=== PATIENT | female | born 1955 | race Native Hawaiian/Other Pacific Islander ===

== ENCOUNTER 2018-06-06 07:44 | Inpatient (IN) | payer OTHER ==
[2018-06-06 08:02] VITALS: BMI 42.5
[2018-06-06] MEDS ORDERED: SODIUM CHLORIDE 1,000 ML IV STA (08:13)
[2018-06-06] MEDS ORDERED: VANCOMYCIN 1,000 MG in DEXTROSE 5%-WATER - 250 ML IVPB ONE (08:25)
[2018-06-06] MEDS ORDERED: AZTREONAM 2 GM in DEXTROSE 5%-WATER 100 ML IVPB ONE (08:25)
--- NOTE | 2018-06-06 08:41 | PDOC ---
History of Present Illness - General Stated Complaint: DIZZINESS Time Seen by Provider: 06/06/18 07:52 - History of Present Illness Initial Comments: Christa Perez is a 62yo woman with a PMH of asthma, atypical COPD, psoriasis, and recently treated for RLE cellulitis who presents with malaise, fevers to 101 at home, headache, SAGASTUME, and recurrence of her RLE cellulitis with worsening proximal thigh pain for the past 2-3 days. She states that she has been taking acetaminophen at home but that her fevers return when the medication wears off. She has felt short of breath when walking but does not feel that she is having an asthma attack; she reports long-term asthma that resulted in her COPD symptoms and says that her asthma feels different than the current SOB. She has been compliant with her inhalers and psoriasis medications. Ms Perez reports that she finished a month-long course of doxycycline, prescribed for her cellulitis, about a week ago. Her RLE pain and erythema resolved while taking the antibiotics, but since completing the course they have returned. She additionally has some healing sores, about 0.5-1cm in diameter, on her right leg that she reports appeared with the cellulitis. She also has more proximal leg pain but has not noticed any redness or swelling in her thigh. She also has several small psoriatic wounds on her right heel and proximal lateral foot but says that they do not hurt and have not been especially red; there has been some clear fluid drainage but no pus or bleeding. These are typical for her psoriasis. She has not had any recent surgeries, immobilization, travel, or sick contacts. She denies any cardiac history. She has not had any new medications other than the recent doxycycline. She presented to the ED because she just didn't feel right for several days and because her fever was persisting despite taking medication at home. She felt like her symptoms were worsening rather than improving over time. Past History - Past Medical History Allergies/Adverse Reactions: Allergies Allergy/AdvReac Type Severity Reaction Status Date / Time Penicillins Allergy Verified 06/06/18 07:59 Home Medications: Ambulatory Orders Apremilast [Otezla] 1 each PO BID 06/06/18 Atorvastatin Calcium 20 mg PO DAILY 06/06/18 Levothyroxine [Synthroid -] 25 mcg PO DAILY 06/06/18 Losartan/Hydrochlorothiazide [Losartan-Hctz 100-25 mg Tab] 1 each PO DAILY 06/06 Umeclidinium [place] [Incruse Ellipta] 62.5 mcg IH DAILY 06/06/18 Zileuton [Zyflo Cr] 600 mg PO BID 06/06/18 Asthma: Yes COPD: No HTN: Yes Seizures: Yes Thyroid Disease: Yes - Surgical History Appendectomy: Yes - Immunization History Immunization Up to Date: Yes - Suicide/Smoking/Psychosocial Hx Smoking History: Never smoked Hx Alcohol Use: No Drug/Substance Use Hx: No Substance Use Type: None Review of Systems - Review of Systems Comments:: General: +fevers, +chills, +malaise, +anorexia HEENT: No changes in vision, no changes in hearing, no congestion, no sore throat. +headache CV: No chest pain, no palpitations, no LE edema Pulm: +SOB, +cough, no wheezing. h/o asthma, h/o COPD GI: No nausea or vomiting, no change in bowel habits, no melena : No frequency, no urgency, no dysuria Musc: No back pain, no joint swelling, no recent injury Skin: +recent cellulitis, +RLE erythema, +h/o psoriasis w/ foot wounds Endo: No excessive thirst, no heat/cold intolerance Heme: No unusual bruising or bleeding, no swollen glands Neuro: No syncope, no numbness/tingling, no focal weakness Vasc: No claudication Psych: No recent change in mood, no SI or HI *Physical Exam - Vital Signs Last Vital Signs Temp Pulse Resp BP Pulse Ox 100.1 F H 116 H 18 123/58 96 06/06/18 07:59 06/06/18 07:59 06/06/18 07:59 06/06/18 07:59 06/06/18 07:59 - Physical Exam Comments: General: Comfortable, no acute distress HEENT: PERRL, EOMI, MMM, voice normal, normal neck ROM Cards: RRR, no murmur appreciated Pulm: Comfortable on room air, clear to auscultation bilaterally Abd: Soft, nontender, nondistended though obese abdomen : No CVA tenderness Ext: Atraumatic. Minimal RLE edema. ROM intact. Strength 5/5 and equal bilaterally Skin: RLE with significant erythema distal to mid-pascual. Warm to touch. 1cm wound on lateral distal foot, clean base, no surrounding erythema or edema. R heel with 2x wounds <1cm, also no erythema/edema, clear fluid draining. Multiple scattered scabbed wounds overlying erythema on RLE. No drainage. Vasc: Extremities WWP. Palpable radial and pedal pulses bilaterally Neuro: A&Ox3, CN grossly intact, normal speech, motor/sensory grossly intact and symmetric Psych: Mood appropriate to situation ED Treatment Course - LABORATORY CBC & Chemistry Diagram: 06/06/18 08:18 06/06/18 08:18 Medical Decision Making - Medical Decision Making 06/06/18 09:18 Christa Perez is a 62yo woman with a PMH of COPD, asthma, psoriasis and recent treatment for RLE cellulitis who presents with general malaise, fever, SAGASTUME, headache and recurrence of her cellulitis over the past several days. - SOB/SAGASTUME may be secondary to her known asthma and COPD. No known history of CHF or ACS, no history concerning for PE. Alexandro r/o DVT/PE given RLE erythema and pain. Duplex, CXR, EKG, trop, BNP ordered to r/o - Appears to have recurrence of cellulitis following completion of antibiotics at home. Concern for bacteremia or sepsis. CBC, CMP, lactate, VBG, mag, phos, cultures ordered - Given report of suprapubic pain and fevers, will check UA for possible UTI. - 1L bolus NS ordered, starting vancomycin and aztreonam for cellulitis 06/06/18 10:43 - Labs completed, notable for leukocytosis to 17, Cr 1.4. EKG with sinus tach. CXR w/o acute abnormality - UA to be collected - Ultrasound pending but continued low suspicion of DVT/PE - Meets criteria for sepsis w/ HR 106, WBC 17, temp 100.4, and suspected cellulitis - Plan to admit for management of sepsis secondary to cellulitis. Discussed with Dr Dove. Discussed admission with Ms Perez. 06/06/18 11:45 - Duplex negative for DVT but shows 4cm right inguinal lymph node Seen and discussed with Dr Friedman. *DC/Admit/Observation/Transfer Diagnosis at time of Disposition: Cellulitis Qualifiers: Site of cellulitis: extremity Site of cellulitis of extremity: lower extremity Laterality: right Qualified Code(s): L03.115 - Cellulitis of right lower limb Sepsis Qualifiers: Sepsis type: sepsis due to unspecified organism Qualified Code(s): A41.9 - Sepsis, unspecified organism - Discharge Dispostion Condition at time of disposition: Fair Decision to Admit order: Yes - Referrals - Patient Instructions - Post Discharge Activity
[2018-06-06] MEDS ORDERED: VANCOMYCIN 1 GRAM (PRE-DOCKED) 1,000 MG/250 ML BAG IVPB ONE (08:52)
[2018-06-06 08:55] LABS: BASO % 0.4 % (0-2.0); EOS % 0.1 % (0-4.5); HEMATOCRIT 38.2 % (32.4-45.2); HEMOGLOBIN 12.9 GM/dL (10.7-15.3); LYMPH % 4.7 % (8-40); MCH 28.3 pg (25.7-33.7); MCHC 33.7 g/dl (32.0-36.0); MEAN CELL VOLUME 83.9 fl (80-96); MEAN PLT VOLUME 8.1 fl (7.5-11.1); MONO % 5.6 % (3.8-10.2); NEUT % 89.2 % (42.8-82.8); PLATELET COUNT 272 K/MM3 (134-434); RBC 4.55 M/mm3 (3.60-5.2); RDW 14.8 % (11.6-15.6); WHITE BLOOD COUNT 17.2 K/mm3 (4.0-10.0)
[2018-06-06 08:58] LABS: VENOUS PH 7.45 (7.32-7.42); VENOUS PO2 81.7 mmHg (28-48)
[2018-06-06 09:09] LABS: INR 1.27 (0.83-1.09); PROTHROMBIN TIME (PATIENT) 14.3 SEC (9.7-13.0)
[2018-06-06 09:12] LABS: ACTIVATED PTT 36.7 SECONDS (25.2-36.5)
[2018-06-06 09:19] LABS: ALBUMIN 3.5 g/dl (3.4-5.0); ALK PHOS 170 U/L (45-117); ANION GAP 9 (8-16); BILIRUBIN,TOTAL 0.7 mg/dL (0.2-1.0); BLOOD UREA NITROGEN 11 mg/dL (7-18); CALCIUM 8.9 mg/dL (8.5-10.1); CHLORIDE 100 mmol/L (98-107); CO2 25 mmol/L (21-32); CREATININE 1.2 mg/dL (0.55-1.02); GLUCOSE,RANDOM 154 mg/dL (74-106); PHOSPHOROUS 3.4 mg/dL (2.5-4.9); POTASSIUM 3.7 mmol/L (3.5-5.1); SGOT/AST 68 U/L (15-37); SGPT/ALT 72 U/L (12-78); SODIUM 134 mmol/L (136-145); TOT PROT 7.3 g/dl (6.4-8.2)
[2018-06-06 09:23] LABS: N-TERMINAL BNP 154.62 pg/ml (5-125)
[2018-06-06 09:32] LABS: MAGNESIUM 2.1 mg/dL (1.8-2.4)
--- NOTE | 2018-06-06 10:04 | HP ---
Admitting History and Physical - Primary Care Physician PCP: Flora Dove S - Admission Chief Complaint: RLE rash swelling and pain/ x2-3 days History of Present Illness: Christa Perez is a 62yo woman with a PMH of asthma/ COPD, psoriasis, and recently treated for recurrent RLE cellulitis who presents with malaise, fevers to 101 at home, headache, SAGASTUME, and recurrence of her RLE cellulitis with worsening proximal thigh pain for the past 2-3 days. She states that she has been taking acetaminophen at home but that her fevers return when the medication wears off. She has felt short of breath when walking but does not feel that she is having an asthma attack; she reports long-term asthma that resulted in her COPD symptoms and says that her asthma feels different than the current SOB. She has been compliant with her inhalers and psoriasis medications. Ms Perez reports that she finished a month-long course of doxycycline, prescribed for her cellulitis, about a week ago. Her RLE pain and erythema resolved while taking the antibiotics, but since completing the course they have returned. She additionally has some healing sores, about 0.5-1cm in diameter, on her right leg that she reports appeared with the cellulitis. She also has more proximal leg pain but has not noticed any redness or swelling in her thigh. She also has several small psoriatic wounds on her right heel and proximal lateral foot but says that they do not hurt and have not been especially red; there has been some clear fluid drainage but no pus or bleeding. These are typical for her psoriasis. She is currently on Otezla for psoriasis (failed other meds in the past) seen by derm dr Cha and referred to a psoriasis specialist Z(she has rivera in few weeks). per ER no DVT / RLE US in ER History Source: Patient Limitations to Obtaining History: No Limitations - Past Medical History Cardiovascular: Yes: HTN Pulmonary: Yes: Asthma, COPD Musculoskeletal: Yes: Chronic low back pain, Osteoarthritis Additional Past Medical History: psoriasis - Smoking History Smoking history: Never smoked - Alcohol/Substance Use Hx Alcohol Use: No - Social History Usual Living Arrangement: Yes: With Spouse ADL: Independent History of Recent Travel: No Home Medications - Allergies Allergies/Adverse Reactions: Allergies Allergy/AdvReac Type Severity Reaction Status Date / Time Penicillins Allergy Verified 06/06/18 07:59 - Home Medications Home Medications: Ambulatory Orders Apremilast [Otezla] 1 each PO BID 06/06/18 Aspirin [ASA -] 81 mg PO HS 06/06/18 Atorvastatin Calcium 20 mg PO DAILY 06/06/18 Beclomethasone Dipropionate [Qvar Redihaler] 2 inh IH BID 06/06/18 Levothyroxine [Synthroid -] 25 mcg PO DAILY 06/06/18 Losartan/Hydrochlorothiazide [Losartan-Hctz 100-25 mg Tab] 1 each PO DAILY 06/06 Umeclidinium [place] [Incruse Ellipta] 62.5 mcg IH BID 06/06/18 Umeclidinium [place] [Incruse Ellipta] 62.5 mcg IH DAILY 06/06/18 Zileuton [Zyflo Cr] 600 mg PO BID 06/06/18 Family Disease History - Family Disease History Family History: Unremarkable Review of Systems - Review of Systems Constitutional: reports: Chills, Fever. denies: Lethargy, Loss of Appetite Eyes: denies: Blind Spots, Blurred Vision, Double Vision HENT: denies: Ear Pain, Epistaxis Neck: denies: Stiffness, Tenderness Cardiovascular: denies: Chest Pain, Shortness of Breath Respiratory: denies: Cough, SOB Gastrointestinal: denies: Abdominal Pain, Constipation, Melena, Rectal Bleeding , Vomiting, Vomiting Blood Genitourinary: denies: Dysuria, Flank Pain Musculoskeletal: reports: Back Pain (on/off) Integumentary: reports: Erythema (RLE), Rash Neurological: denies: Change in LOC, Change in Speech, Confusion, Dizziness Endocrine: denies: Intolerance to Cold, Intolerance to Heat Hematology/Lymphatic: denies: Easily Bruised, Excessive Bleeding Psychiatric: denies: Altered Sleep Pattern, Anxiety, Depression, Suicidal Physical Examination Vital Signs: Vital Signs Temperature 100.4 F H 06/06/18 09:57 Pulse Rate 116 H 06/06/18 07:59 Respiratory Rate 18 06/06/18 07:59 Blood Pressure 123/58 06/06/18 07:59 O2 Sat by Pulse Oximetry (%) 98 06/06/18 09:08 Constitutional: Yes: No Distress, Calm Eyes: Yes: Conjunctiva Clear HENT: Yes: Atraumatic Neck: Yes: Supple Cardiovascular: Yes: Regular Rate and Rhythm Respiratory: Yes: CTA Bilaterally Gastrointestinal: Yes: Soft. No: Distention Renal/: No: CVA Tenderness - Left, CVA Tenderness - Right Musculoskeletal: No: Joint Stiffness, Joint Swelling Extremities: Yes: Erythema (RLE below knee and extending upper medial thigh). No: Cold, Cool, Cyanosis Edema: Yes (RLE below knee) Integumentary: Yes: Rash (see above). No: Pressure Ulcer, Venous Stasis Changes Neurological: Yes: WNL, Alert, Oriented ...Motor Strength: WNL Psychiatric: Yes: WNL, Alert, Oriented. No: Agitated, Suicidal Ideation Labs: CBC, BMP 06/06/18 08:18 06/06/18 08:18 Imaging - Results Chest X-ray: Report Reviewed Other: Report Reviewed Assessment/Plan Christa Perez is a 62yo woman with a PMH of asthma, atypical COPD, psoriasis, and recently treated for RLE cellulitis who presents with malaise, fevers to 101 at home, headache, SAGASTUME, and recurrence of her RLE cellulitis with worsening proximal thigh pain for the past 2-3 days. h/o difficult to control psoriasis admit IV antibiotics ID and dermatology eval f/u blood cx DVT pfx falls PFX d/w pt and staff
--- NOTE | 2018-06-06 10:04 | PDOC ---
Attending Attestation - Resident Resident Name: Yu Marti - ED Attending Attestation I have performed the following: I have examined & evaluated the patient, The case was reviewed & discussed with the resident, I agree w/resident's findings & plan, Exceptions are as noted - HPI HPI: 06/06/18 10:06 62 year old female with pmh of chronic asthma, COPD, psoriasis p/w RLE cellulitis. Endorses approx 3 to 4 days of fever (daily) Tmax 101. Noticed that her RLE redness. Pt was recently on 1 month's worth of doxycycline, but completed it 1 week ago. Denies nausea, vomiting, diarrhea. States she feels generally weak. - Physicial Exam PE: 06/06/18 10:18 GENERAL: Awake, alert, and fully oriented, in no acute distress HEAD: No signs of trauma EYES: EOMI, sclera anicteric, conjunctiva clear ENT: Auricles normal inspection, hearing grossly normal, nares patent NECK: Normal ROM, supple, EXTREMITIES: Normal range of motion, no edema. No clubbing or cyanosis. No cords, erythema, or tenderness NEUROLOGICAL: Cranial nerves II through XII grossly intact. Normal speech, normal gait SKIN: Diffuse erythematous rash along the right foot extending to right mid pascual. No fluctuance or drainage appreciated. - Medical Decision Making 06/06/18 10:19 Vital Signs Temp Pulse Resp BP Pulse Ox 100.4 F H 116 H 18 123/58 98 06/06/18 09:57 06/06/18 07:59 06/06/18 07:59 06/06/18 07:59 06/06/18 09:08 Impression: Cellulitis, failing outpatient antibiotics. Labs including cultures. IV antibiotics (vanc and aztreonam). Case discussed with Dr. Flora Dove. She accepts the patient to her service. Heart Score/ECG Review #1 ECG reviewed & interpreted by me at: 09:40 06/06/18 10:21 NSR 106, no std/sandra, normal axis, normal intervals, QTC 448 msec
--- NOTE | 2018-06-06 10:06 | PDOC ---
*Physical Exam - Vital Signs Last Vital Signs Temp Pulse Resp BP Pulse Ox 100.4 F H 116 H 18 123/58 98 06/06/18 09:57 06/06/18 07:59 06/06/18 07:59 06/06/18 07:59 06/06/18 09:08 ED Treatment Course - LABORATORY CBC & Chemistry Diagram: 06/06/18 08:18 06/06/18 08:18 - ADDITIONAL ORDERS Additional order review: Laboratory Results 06/06/18 06/06/18 06/06/18 08:18 08:18 08:18 PT with INR INR PTT (Actin FS) VBG pH POC VBG pCO2 POC VBG pO2 Mixed VBG HCO3 Sodium 134 L Potassium 3.7 Chloride 100 Carbon Dioxide 25 Anion Gap 9 BUN 11 Creatinine 1.2 H Creat Clearance w eGFR 45.37 Random Glucose 154 H Lactic Acid 1.2 Calcium 8.9 Phosphorus 3.4 Magnesium 2.1 Total Bilirubin 0.7 AST 68 H ALT 72 Alkaline Phosphatase 170 H B-Natriuretic Peptide 154.62 H Total Protein 7.3 Albumin 3.5 06/06/18 06/06/18 08:18 08:18 PT with INR 14.30 H INR 1.27 H PTT (Actin FS) 36.7 H VBG pH 7.45 H POC VBG pCO2 37.0 L POC VBG pO2 81.7 H Mixed VBG HCO3 25.4 H Sodium Potassium Chloride Carbon Dioxide Anion Gap BUN Creatinine Creat Clearance w eGFR Random Glucose Lactic Acid Calcium Phosphorus Magnesium Total Bilirubin AST ALT Alkaline Phosphatase B-Natriuretic Peptide Total Protein Albumin 06/06/18 08:18 RBC 4.55 MCV 83.9 MCHC 33.7 RDW 14.8 MPV 8.1 Neutrophils % 89.2 H Lymphocytes % 4.7 L Monocytes % 5.6 Eosinophils % 0.1 Basophils % 0.4 - Medications Given in the ED: ED Medications Discontinued Medications Generic Name Dose Route Start Last Admin Trade Name Freq PRN Reason Stop Dose Admin Sodium Chloride 1,000 mls @ 1,000 mls/hr 06/06/18 08:13 06/06/18 08:51 Normal Saline - IV 06/06/18 09:12 1,000 mls/hr ASDIR STA Administration Vancomycin HCl 1,000 mg/ 250 mls @ 166.667 mls/hr 06/06/18 08:25 06/06/18 09: 08 Dextrose IVPB 06/06/18 09:54 166.667 mls/hr ONCE ONE Administration Protocol *DC/Admit/Observation/Transfer Diagnosis at time of Disposition: Cellulitis Qualifiers: Site of cellulitis: extremity Site of cellulitis of extremity: lower extremity Laterality: right Qualified Code(s): L03.115 - Cellulitis of right lower limb - Discharge Dispostion Condition at time of disposition: Stable Decision to Admit order: Yes - Referrals Referrals: Flora Dove [Primary Care Provider] - - Patient Instructions - Post Discharge Activity
[2018-06-06 11:03] LABS: URINE APPEARANCE CLEAR; URINE BILIRUBIN NEGATIVE (<2.0 mg/dL); URINE COLOR LTYELLOW; URINE GLUCOSE (UA) NEGATIVE (NEGATIVE); URINE KETONE NEGATIVE (NEGATIVE); URINE LEUK ESTERASE NEGATIVE (NEGATIVE); URINE NITRITE NEGATIVE (NEGATIVE); URINE PROTEIN NEGATIVE (NEGATIVE); URINE UROBILINOGEN NEGATIVE mg/dL (0.2-1.0)
[2018-06-06] MEDS ORDERED: ACETAMINOPHEN 325 MG TABLET (FP) ONE (12:19)
[2018-06-06] MEDS ORDERED: ACETAMINOPHEN 325 MG TABLET (FP) PO ONE (12:20)
[2018-06-06] MEDS ORDERED: VANCOMYCIN 1,000 MG in DEXTROSE 5%-WATER - 250 ML IVPB SCH (17:00)
--- NOTE | 2018-06-06 17:03 | PN ---
Progress Note (short form) - Note Progress Note: ID Consult dictated R LE cellulitis Possible sepsis secondary to cellulitis PCN allergy Await c/s Continue empiric vancomycin/ aztreonam
[2018-06-06] MEDS ORDERED: VANCOMYCIN 1 GM PREMIX - 1 GM/200 ML BAG IVPB SCH (18:30)
[2018-06-06] MEDS ORDERED: PT OWN MED DRAWER 7, Y5N ONE (18:34)
[2018-06-06] MEDS: AZTREONAM 1 GM in DEXTROSE 5%-WATER - 50 ML IVPB SCH (18:36)
[2018-06-06] MEDS: VANCOMYCIN 1 GM PREMIX - 1 GM/200 ML BAG IVPB SCH (21:34)
[2018-06-06] MEDS: HEPARIN NA (PORCINE) 5,000 UNITS/ML 1ML VIAL SQ SCH (23:03)
[2018-06-06] MEDS: ACETAMINOPHEN 325 MG TABLET (FP) PO PRN (23:04)
[2018-06-07] MEDS: AZTREONAM 1 GM in DEXTROSE 5%-WATER - 50 ML IVPB SCH ×3 (01:17→17:00)
[2018-06-07] MEDS: LEVOTHYROXINE NA 25 MCG TABLET (FP) PO SCH (06:16)
[2018-06-07 08:07] LABS: BASO % 0.8 % (0-2.0); HEMATOCRIT 34.3 % (32.4-45.2); HEMOGLOBIN 11.5 GM/dL (10.7-15.3); LYMPH % 10.7 % (8-40); MCH 28.3 pg (25.7-33.7); MCHC 33.7 g/dl (32.0-36.0); MEAN PLT VOLUME 7.8 fl (7.5-11.1); MONO % 7.1 % (3.8-10.2); NEUT % 80.4 % (42.8-82.8); PLATELET COUNT 262 K/MM3 (134-434); RBC 4.08 M/mm3 (3.60-5.2); RDW 15.1 % (11.6-15.6); WHITE BLOOD COUNT 13.7 K/mm3 (4.0-10.0)
--- NOTE | 2018-06-07 08:16 | PN ---
Progress Note, Physician Chief Complaint: leg still red, on IV ATB seen by ID US negative for DVT - Current Medication List Current Medications: Active Medications Acetaminophen (Tylenol -) 650 mg PO Q6H PRN PRN Reason: FEVER/PAIN LEVEL 1-5 Last Admin: 06/06/18 23:04 Dose: 650 mg Aspirin (Ecotrin -) 81 mg PO DAILY [facility] Atorvastatin Calcium (Lipitor -) 20 mg PO HS [facility] HCTZ/Losartan Potassium (Hyzaar -) 2 tab PO DAILY [facility] Heparin Sodium (Porcine) (Heparin -) 5,000 unit SQ BID [facility] Last Admin: 06/06/18 23:03 Dose: 5,000 unit Aztreonam 1 gm/ Dextrose 50 mls @ 100 mls/hr IVPB Q8H-IV [facility]; Protocol Last Admin: 06/07/18 01:17 Dose: 100 mls/hr Vancomycin HCl (Vancomycin 1 Gm Premix -) 1 gm in 200 mls @ 133.333 mls/hr IVPB BID@0900,2100 [facility]; Protocol Last Admin: 06/06/18 21:34 Dose: 133.333 mls/hr Levothyroxine Sodium (Synthroid -) 25 mcg PO DAILY@0700 [facility] Last Admin: 06/07/18 06:16 Dose: 25 mcg Non-Formulary Medication (Apremilast [Otezla]) 1 each PO BID [facility] Non-Formulary Medication (Umeclidinium [place] [Incruse Ellipta]) 62.5 mcg IH DAILY [facility] Non-Formulary Medication (Zileuton [Zyflo Cr]) 1,200 mg PO BID [facility] Qvar 80 Mcg Inhaler (- Patient Own Med) 2 each IH BID [facility] - Objective Vital Signs: Vital Signs Temperature 98.5 F 06/07/18 06:00 Pulse Rate 91 H 06/07/18 06:00 Respiratory Rate 20 06/07/18 06:00 Blood Pressure 122/60 06/07/18 06:00 O2 Sat by Pulse Oximetry (%) 98 06/06/18 21:00 Constitutional: Yes: No Distress, Calm Eyes: Yes: Conjunctiva Clear HENT: Yes: Atraumatic Neck: Yes: Supple Cardiovascular: Yes: Regular Rate and Rhythm Respiratory: Yes: CTA Bilaterally Gastrointestinal: Yes: Soft. No: Distention Genitourinary: No: CVA Tenderness - Left, CVA Tenderness - Right Musculoskeletal: No: Joint Stiffness, Joint Swelling Extremities: Yes: Erythema (RLE below knee). No: Calf Tenderness, Cold, Cool, Cyanosis Edema: Yes (1+ RLE below knee) Peripheral Pulses WNL: Yes Integumentary: Yes: Rash (RLE). No: Venous Stasis Changes Neurological: Yes: WNL, Alert, Oriented ...Motor Strength: WNL Psychiatric: Yes: WNL, Alert, Oriented. No: Agitated, Suicidal Ideation Labs: CBC, BMP 06/07/18 06:15 INR, PTT INR 1.27 (0.83-1.09) H 06/06/18 08:18 - ....Imaging Other: Report Reviewed Assessment/Plan Christa Perez is a 62yo woman with a PMH of asthma, atypical COPD, psoriasis, and recently treated for RLE cellulitis who presents with malaise, fevers to 101 at home, headache, SAGASTUME, and recurrence of her RLE cellulitis with worsening proximal thigh pain for the past 2-3 days. h/o difficult to control psoriasis IV antibiotics ID and dermatology eval f/u blood cx DVT pfx falls PFX d/w pt and staff
[2018-06-07 08:35] LABS: ALBUMIN 2.9 g/dl (3.4-5.0); ANION GAP 9 (8-16); BLOOD UREA NITROGEN 10 mg/dL (7-18); CALCIUM 8.3 mg/dL (8.5-10.1); CHLORIDE 104 mmol/L (98-107); CO2 27 mmol/L (21-32); GLUCOSE,RANDOM 134 mg/dL (74-106); POTASSIUM 3.2 mmol/L (3.5-5.1); SODIUM 140 mmol/L (136-145)
[2018-06-07] MEDS ORDERED: PT OWN MED DRAWER 7, Y5N ONE ×2 (08:36→16:40)
[2018-06-07 08:40] LABS: ALK PHOS 155 U/L (45-117); BILIRUBIN,TOTAL 0.6 mg/dL (0.2-1.0); CREATININE 0.9 mg/dL (0.55-1.02); SGOT/AST 41 U/L (15-37); SGPT/ALT 68 U/L (12-78); TOT PROT 6.4 g/dl (6.4-8.2)
[2018-06-07] MEDS: VANCOMYCIN 1 GM PREMIX - 1 GM/200 ML BAG IVPB SCH ×2 (08:43→21:25)
--- NOTE | 2018-06-07 08:58 | EKG ---
Test Reason : Blood Pressure : / mmHG Vent. Rate : 106 BPM Atrial Rate : 106 BPM P-R Int : 176 ms QRS Dur : 080 ms QT Int : 338 ms P-R-T Axes : 070 035 048 degrees QTc Int : 448 ms SINUS TACHYCARDIA OTHERWISE NORMAL ECG WHEN COMPARED WITH ECG OF 20-MAY-2011 10:45, NO SIGNIFICANT CHANGE WAS FOUND Confirmed by ANGELA RUIZ MD ([id number]) on 06/07/2018 8:58:16 AM Referred By: Confirmed By:ANGELA RUIZ MD
[2018-06-07] MEDS: HEPARIN NA (PORCINE) 5,000 UNITS/ML 1ML VIAL SQ SCH ×2 (09:04→21:28)
[2018-06-07] MEDS: ATORVASTATIN CA 20 MG TABLET (FP) PO SCH ×2 (09:04→21:28)
[2018-06-07] MEDS: QVAR 80 MCG IH SCH ×2 (09:04→21:27)
[2018-06-07] MEDS: APREMILAST PO SCH ×2 (09:04→21:26)
[2018-06-07] MEDS: ASPIRIN COATED 81 MG TABLET.EC PO SCH (09:04)
[2018-06-07] MEDS: ZILEUTON PO SCH ×2 (09:04→21:26)
[2018-06-07] MEDS: PATIENT'S OWN MEDICATION (NON-FORMULARY) (Umeclidinium Bromide [Incruse Ellipta] 62.5 MCG) IH SCH (09:04)
[2018-06-07] MEDS: LOSARTAN 50MG/HCTZ 12.5MG 1 TAB (FP) PO SCH (09:08)
--- NOTE | 2018-06-07 11:16 | PN ---
Progress Note, Physician History of Present Illness: Awake, alert Seated in bed No c/o R LE pain No c/o fever/ chills Tolerating Vancomycin/ Aztreonam - Current Medication List Current Medications: Active Medications Acetaminophen (Tylenol -) 650 mg PO Q6H PRN PRN Reason: FEVER/PAIN LEVEL 1-5 Last Admin: 06/06/18 23:04 Dose: 650 mg Aspirin (Ecotrin -) 81 mg PO DAILY [facility] Last Admin: 06/07/18 09:04 Dose: 81 mg Aspirin (Asa -) 81 mg PO HS [facility] Atorvastatin Calcium (Lipitor -) 20 mg PO HS [facility] Last Admin: 06/07/18 09:04 Dose: 20 mg HCTZ/Losartan Potassium (Hyzaar -) 2 tab PO DAILY [facility] Last Admin: 06/07/18 09:08 Dose: 2 tab Heparin Sodium (Porcine) (Heparin -) 5,000 unit SQ BID [facility] Last Admin: 06/07/18 09:04 Dose: 5,000 unit Aztreonam 1 gm/ Dextrose 50 mls @ 100 mls/hr IVPB Q8H-IV [facility]; Protocol Last Admin: 06/07/18 09:55 Dose: 100 mls/hr Vancomycin HCl (Vancomycin 1 Gm Premix -) 1 gm in 200 mls @ 133.333 mls/hr IVPB BID@0900,2100 [facility]; Protocol Last Admin: 06/07/18 08:43 Dose: Not Given Levothyroxine Sodium (Synthroid -) 25 mcg PO DAILY@0700 [facility] Last Admin: 06/07/18 06:16 Dose: 25 mcg Non-Formulary Medication (Apremilast [Otezla]) 1 each PO BID [facility] Last Admin: 06/07/18 09:04 Dose: 1 each Non-Formulary Medication (Umeclidinium [place] [Incruse Ellipta]) 62.5 mcg IH DAILY [facility] Last Admin: 06/07/18 09:04 Dose: 62.5 mcg Non-Formulary Medication (Zileuton [Zyflo Cr]) 1,200 mg PO BID [facility] Last Admin: 06/07/18 09:04 Dose: 1,200 mg Qvar 80 Mcg Inhaler (- Patient Own Med) 2 each IH BID [facility] Last Admin: 06/07/18 09:04 Dose: 2 each Non-Formulary Medication (Beclomethasone Dipropionate [Qvar Redihaler]) 2 inh IH BID [facility] Non-Formulary Medication (Umeclidinium [place] [Incruse Ellipta]) 62.5 mcg IH BID [facility] Potassium Chloride (K-Dur -) 20 meq PO DAILY [facility] - Objective Vital Signs: Vital Signs Temperature 98.1 F 06/07/18 09:00 Pulse Rate 108 H 06/07/18 09:00 Respiratory Rate 20 06/07/18 09:00 Blood Pressure 161/84 06/07/18 09:00 O2 Sat by Pulse Oximetry (%) 98 06/07/18 09:00 Constitutional: Yes: No Distress, Obese Eyes: Yes: Conjunctiva Clear Cardiovascular: Yes: Regular Rate and Rhythm, S1, S2 Respiratory: Yes: CTA Bilaterally Gastrointestinal: Yes: Normal Bowel Sounds, Soft, Abdomen, Obese. No: Tenderness Extremities: Yes: Other (+ LE erythema/ warmth with lymphangitic streaking R thigh. No open wounds.) Labs: CBC, BMP 06/07/18 06:15 06/07/18 06:15 INR, PTT INR 1.27 (0.83-1.09) H 06/06/18 08:18 Assessment/Plan Cellulitis/ lymphangitis R LE Fever/ leukocytosis R/O sepsis Hx psoriasis on otezla PCN allergy Await cultures Continue empiric vancomycin/ aztreonam
[2018-06-07] MEDS: POTASSIUM CHLORIDE TABS 10 MEQ TABLET.ER (FP) PO SCH (12:22)
--- NOTE | 2018-06-07 12:30 | CONS ---
DATE OF CONSULTATION: DATE OF DICTATION: 06/07/2018 The patient is a 62-year-old female with a history of psoriasis, on Otezla, evaluated for right lower extremity cellulitis. The patient reports that over the past month, she has developed cellulitis of the right lower extremity and was treated with a course of doxycycline. She reports taking the doxycycline for approximately a month, with improvement, however, not total resolution of the cellulitis. She now presents with worsening erythema, warmth, and swelling of the right lower extremity associated with fever, headache, generalized malaise, symptoms markedly worsened over the last 2 to 3 days. She presented to the emergency room, where she was found to have cellulitis of the right lower extremity with lymphangitis. In the emergency room, she was febrile to 100.8 and had a white blood cell count of 17,000. She was empirically treated with vancomycin and Azactam. She has a history of penicillin allergy. She denies any traumatic injury to the right lower extremity. No insect or animal bites or scratches. She has been under the care of a chemical lab technician for psoriasis. She denies history of MRSA. Past medical history positive for psoriasis, asthma, COPD, right lower extremity cellulitis. Allergies to PENICILLIN: Patient reports joint swelling with PENICILLIN. Medications include Otezla, Lipitor, Synthroid, losartan, hydrochlorothiazide, Zyflo. SOCIAL HISTORY: Resides at home. Nonsmoker, nondrinker. SYSTEMS REVIEW: Neurologic: No loss of consciousness, seizure activity, or focal weakness. Cardiac: Negative chest pain or palpitations. Respiratory: Negative cough or sputum production. Gastrointestinal: Negative vomiting or diarrhea. Genitourinary: Negative for urinary tract infection. LABORATORY DATA: White count on admission 17,000, presently 13.7, hematocrit 34.3, platelet count 262. BUN 10, creatinine 0.9. Doppler exam negative for DVT. Urinalysis negative. Chest x-ray negative. Blood cultures pending. PHYSICAL EXAMINATION: General: She is awake and alert, in no acute distress. Vital Signs: Temperature 99.0. Blood pressure 144/60. Pulse 85, regular. Respirations 20 per minute, T-max 100.8. Eyes: Sclerae anicteric. Heart Sounds: S1, S2. Lungs: Clear. Abdomen: Obese, soft, nontender. Extremities: Right lower extremity, there is confluent erythema involving the right lower extremity from the foot to the mid leg. There is lymphangitic streaking up the right medial thigh. The area is warm to touch and tender. No crepitus or fluctuance. No open lesions noted or wound drainage. IMPRESSION: 1. Recurrent right lower extremity cellulitis with lymphangitis. 2. Fever, leukocytosis. Rule out sepsis secondary to skin source. 3. PENICILLIN allergy. 4. Psoriasis, on Otezla. Await culture results, empiric antibiotic coverage, in this PENICILLIN-allergic patient, with vancomycin and Azactam. Elevation, analgesics. Further recommendations pending cultures. Will follow. Thank you for the kind referral. FILIBERTO BAILEY M.D. [id number]
[2018-06-07 12:32] LABS: ERYTHROCYTE SEDIMENTATION RATE 94 mm/hr (0-30)
[2018-06-07] MEDS: RANITIDINE HCL 150 MG TABLET (FP) PO SCH (21:28)
[2018-06-07] MEDS: ASPIRIN 81 MG CHEWABLE TABLETS PO SCH (21:28)
[2018-06-07] MEDS: MAG HYDROX/AL HYDROX/SIMETH 30 ML UNIT-DOSE CUP PO PRN (21:48)
[2018-06-07] MEDS ORDERED: [UNRECOGNIZED DRUG - OTHER] IH SCH (22:00)
[2018-06-07] MEDS ORDERED: PATIENT'S OWN MEDICATION (NON-FORMULARY) (Umeclidinium Bromide [Incruse Ellipta] 62.5 MCG) IH SCH (22:00)
[2018-06-08] MEDS ORDERED: PT OWN MED DRAWER 7, Y5N ONE ×3 (01:07→17:29)
[2018-06-08] MEDS: AZTREONAM 1 GM in DEXTROSE 5%-WATER - 50 ML IVPB SCH ×3 (01:47→17:43)
[2018-06-08] MEDS: LEVOTHYROXINE NA 25 MCG TABLET (FP) PO SCH (06:11)
[2018-06-08] MEDS: POTASSIUM CHLORIDE TABS 10 MEQ TABLET.ER (FP) PO SCH (10:04)
[2018-06-08] MEDS: ASPIRIN COATED 81 MG TABLET.EC PO SCH (10:04)
[2018-06-08] MEDS: VANCOMYCIN 1 GM PREMIX - 1 GM/200 ML BAG IVPB SCH ×2 (10:04→21:22)
[2018-06-08] MEDS: LOSARTAN 50MG/HCTZ 12.5MG 1 TAB (FP) PO SCH (10:04)
[2018-06-08] MEDS: QVAR 80 MCG IH SCH ×2 (10:09→21:23)
[2018-06-08] MEDS: APREMILAST PO SCH ×2 (10:09→21:23)
[2018-06-08] MEDS: PATIENT'S OWN MEDICATION (NON-FORMULARY) (Umeclidinium Bromide [Incruse Ellipta] 62.5 MCG) IH SCH (10:10)
[2018-06-08] MEDS: HEPARIN NA (PORCINE) 5,000 UNITS/ML 1ML VIAL SQ SCH ×2 (10:10→21:25)
[2018-06-08] MEDS: ZILEUTON PO SCH ×2 (10:10→21:23)
--- NOTE | 2018-06-08 10:14 | PN ---
Progress Note, Physician Chief Complaint: no new c/o; RLE a little better, less rash less pain - Current Medication List Current Medications: Active Medications Acetaminophen (Tylenol -) 650 mg PO Q6H PRN PRN Reason: FEVER/PAIN LEVEL 1-5 Last Admin: 06/06/18 23:04 Dose: 650 mg Al Hydroxide/Mg Hydroxide (Mylanta Oral Suspension -) 20 ml PO Q6H PRN PRN Reason: INDIGESTION Last Admin: 06/07/18 21:48 Dose: 20 ml Aspirin (Ecotrin -) 81 mg PO DAILY [facility] Last Admin: 06/08/18 10:04 Dose: 81 mg Aspirin (Asa -) 81 mg PO HS [facility] Last Admin: 06/07/18 21:28 Dose: 81 mg Atorvastatin Calcium (Lipitor -) 20 mg PO HS [facility] Last Admin: 06/07/18 21:28 Dose: 20 mg HCTZ/Losartan Potassium (Hyzaar -) 2 tab PO DAILY [facility] Last Admin: 06/08/18 10:04 Dose: 2 tab Heparin Sodium (Porcine) (Heparin -) 5,000 unit SQ BID [facility] Last Admin: 06/08/18 10:10 Dose: 5,000 unit Aztreonam 1 gm/ Dextrose 50 mls @ 100 mls/hr IVPB Q8H-IV [facility]; Protocol Last Admin: 06/08/18 01:47 Dose: 100 mls/hr Vancomycin HCl (Vancomycin 1 Gm Premix -) 1 gm in 200 mls @ 133.333 mls/hr IVPB BID@0900,2100 [facility]; Protocol Last Admin: 06/08/18 10:04 Dose: 133.333 mls/hr Levothyroxine Sodium (Synthroid -) 25 mcg PO DAILY@0700 [facility] Last Admin: 06/08/18 06:11 Dose: 25 mcg Non-Formulary Medication (Apremilast [Otezla]) 1 each PO BID [facility] Last Admin: 06/08/18 10:09 Dose: 1 each Non-Formulary Medication (Umeclidinium [place] [Incruse Ellipta]) 62.5 mcg IH DAILY [facility] Last Admin: 06/08/18 10:10 Dose: 62.5 mcg Non-Formulary Medication (Zileuton [Zyflo Cr]) 1,200 mg PO BID [facility] Last Admin: 06/08/18 10:10 Dose: 1,200 mg Qvar 80 Mcg Inhaler (- Patient Own Med) 2 each IH BID [facility] Last Admin: 06/08/18 10:09 Dose: 2 each Non-Formulary Medication (Beclomethasone Dipropionate [Qvar Redihaler]) 2 inh IH BID [facility] Non-Formulary Medication (Umeclidinium [place] [Incruse Ellipta]) 62.5 mcg IH BID [facility] Potassium Chloride (K-Dur -) 20 meq PO DAILY [facility] Last Admin: 06/08/18 10:04 Dose: 20 meq Ranitidine HCl (Zantac -) 150 mg PO HS [facility] Last Admin: 06/07/18 21:28 Dose: 150 mg - Objective Vital Signs: Vital Signs Temperature 98.9 F 06/08/18 06:00 Pulse Rate 84 06/08/18 06:00 Respiratory Rate 18 06/08/18 06:00 Blood Pressure 101/50 06/08/18 06:00 O2 Sat by Pulse Oximetry (%) 96 06/07/18 21:00 Constitutional: Yes: No Distress Eyes: Yes: Conjunctiva Clear HENT: Yes: Atraumatic Neck: Yes: Supple Cardiovascular: Yes: Regular Rate and Rhythm Respiratory: Yes: CTA Bilaterally Gastrointestinal: Yes: Soft. No: Distention Genitourinary: No: CVA Tenderness - Left, CVA Tenderness - Right Musculoskeletal: No: Joint Stiffness, Joint Swelling Extremities: Yes: Erythema (better). No: Calf Tenderness, Cold, Cool, Cyanosis Edema: Yes (better RLE) Integumentary: No: Venous Stasis Changes Neurological: Yes: WNL, Alert, Oriented ...Motor Strength: WNL Psychiatric: Yes: WNL, Alert, Oriented. No: Agitated, Suicidal Ideation Labs: CBC, BMP 06/07/18 06:15 06/07/18 06:15 INR, PTT INR 1.27 (0.83-1.09) H 06/06/18 08:18 - ....Imaging Other: Report Reviewed Assessment/Plan Christa Perez is a 62yo woman with a PMH of asthma, atypical COPD, psoriasis, and recently treated for RLE cellulitis who presents with malaise, fevers to 101 at home, headache, SAGASTUME, and recurrence of her RLE cellulitis with worsening proximal thigh pain for the past 2-3 days. h/o difficult to control psoriasis IV antibiotics ID and dermatology f/u slightly worse increase in LFTs, GI eval; liver US f/u blood cx DVT pfx falls PFX d/w pt and staff
[2018-06-08] MEDS: MAG HYDROX/AL HYDROX/SIMETH 30 ML UNIT-DOSE CUP PO PRN (17:38)
[2018-06-08] MEDS: ACETAMINOPHEN 325 MG TABLET (FP) PO PRN (17:39)
[2018-06-08] MEDS: ASPIRIN 81 MG CHEWABLE TABLETS PO SCH (21:24)
[2018-06-08] MEDS: ATORVASTATIN CA 20 MG TABLET (FP) PO SCH (21:24)
[2018-06-08] MEDS: RANITIDINE HCL 150 MG TABLET (FP) PO SCH (21:24)
[2018-06-09] MEDS: AZTREONAM 1 GM in DEXTROSE 5%-WATER - 50 ML IVPB SCH ×3 (02:48→17:27)
[2018-06-09] MEDS: LEVOTHYROXINE NA 25 MCG TABLET (FP) PO SCH (06:02)
[2018-06-09 08:52] LABS: EOS % 4.8 % (0-4.5); HEMATOCRIT 33.7 % (32.4-45.2); HEMOGLOBIN 11.2 GM/dL (10.7-15.3); LYMPH % 16.1 % (8-40); MCH 28.3 pg (25.7-33.7); MCHC 33.3 g/dl (32.0-36.0); MEAN CELL VOLUME 85.1 fl (80-96); MEAN PLT VOLUME 7.7 fl (7.5-11.1); MONO % 7.9 % (3.8-10.2); NEUT % 70.2 % (42.8-82.8); PLATELET COUNT 288 K/MM3 (134-434); RBC 3.96 M/mm3 (3.60-5.2); RDW 14.6 % (11.6-15.6); WHITE BLOOD COUNT 9.9 K/mm3 (4.0-10.0)
--- NOTE | 2018-06-09 08:59 | PN ---
Progress Note, Physician Chief Complaint: did not sleep well (b/o hospital conditions) but leg is a little better no N/V/ abdominal pain. - Current Medication List Current Medications: Active Medications Acetaminophen (Tylenol -) 650 mg PO Q6H PRN PRN Reason: FEVER/PAIN LEVEL 1-5 Last Admin: 06/08/18 17:39 Dose: 650 mg Al Hydroxide/Mg Hydroxide (Mylanta Oral Suspension -) 20 ml PO Q6H PRN PRN Reason: INDIGESTION Last Admin: 06/08/18 17:38 Dose: 20 ml Aspirin (Ecotrin -) 81 mg PO DAILY [facility] Last Admin: 06/08/18 10:04 Dose: 81 mg Aspirin (Asa -) 81 mg PO HS [facility] Last Admin: 06/08/18 21:24 Dose: 81 mg Atorvastatin Calcium (Lipitor -) 20 mg PO HS [facility] Last Admin: 06/08/18 21:24 Dose: 20 mg HCTZ/Losartan Potassium (Hyzaar -) 2 tab PO DAILY [facility] Last Admin: 06/08/18 10:04 Dose: 2 tab Heparin Sodium (Porcine) (Heparin -) 5,000 unit SQ BID [facility] Last Admin: 06/08/18 21:25 Dose: 5,000 unit Aztreonam 1 gm/ Dextrose 50 mls @ 100 mls/hr IVPB Q8H-IV [facility]; Protocol Last Admin: 06/09/18 02:48 Dose: 100 mls/hr Vancomycin HCl (Vancomycin 1 Gm Premix -) 1 gm in 200 mls @ 133.333 mls/hr IVPB BID@0900,2100 [facility]; Protocol Last Admin: 06/08/18 21:22 Dose: 133.333 mls/hr Levothyroxine Sodium (Synthroid -) 25 mcg PO DAILY@0700 [facility] Last Admin: 06/09/18 06:02 Dose: 25 mcg Non-Formulary Medication (Apremilast [Otezla]) 1 each PO BID [facility] Last Admin: 06/08/18 21:23 Dose: 1 each Non-Formulary Medication (Umeclidinium [place] [Incruse Ellipta]) 62.5 mcg IH DAILY [facility] Last Admin: 06/08/18 10:10 Dose: 62.5 mcg Non-Formulary Medication (Zileuton [Zyflo Cr]) 1,200 mg PO BID [facility] Last Admin: 06/08/18 21:23 Dose: 1,200 mg Qvar 80 Mcg Inhaler (- Patient Own Med) 2 each IH BID [facility] Last Admin: 06/08/18 21:23 Dose: 2 each Non-Formulary Medication (Beclomethasone Dipropionate [Qvar Redihaler]) 2 inh IH BID [facility] Non-Formulary Medication (Umeclidinium [place] [Incruse Ellipta]) 62.5 mcg IH BID [facility] Potassium Chloride (K-Dur -) 20 meq PO DAILY [facility] Last Admin: 06/08/18 10:04 Dose: 20 meq Ranitidine HCl (Zantac -) 150 mg PO HS [facility] Last Admin: 06/08/18 21:24 Dose: 150 mg - Objective Vital Signs: Vital Signs Temperature 97.8 F 06/09/18 06:20 Pulse Rate 79 06/09/18 06:20 Respiratory Rate 20 06/09/18 06:20 Blood Pressure 122/57 06/09/18 06:20 O2 Sat by Pulse Oximetry (%) 96 06/08/18 21:00 Constitutional: Yes: No Distress, Calm Eyes: Yes: Conjunctiva Clear HENT: Yes: Atraumatic Neck: Yes: Supple Cardiovascular: Yes: Regular Rate and Rhythm Respiratory: Yes: CTA Bilaterally Gastrointestinal: Yes: Soft. No: Tenderness Genitourinary: No: CVA Tenderness - Left, CVA Tenderness - Right Musculoskeletal: No: Joint Stiffness, Joint Swelling Extremities: Yes: Erythema (less). No: Cold, Cool Edema: No Integumentary: No: Skin Tear, Venous Stasis Changes Neurological: Yes: WNL, Alert, Oriented ...Motor Strength: WNL Psychiatric: Yes: WNL, Alert, Oriented. No: Agitated, Suicidal Ideation Labs: CBC, BMP 06/09/18 07:00 INR, PTT INR 1.27 (0.83-1.09) H 06/06/18 08:18 - ....Imaging Other: Report Reviewed Assessment/Plan Christa Perez is a 62yo woman with a PMH of asthma, atypical COPD, psoriasis, and recently treated for RLE cellulitis who presents with malaise, fevers to 101 at home, headache, SAGASTUME, and recurrence of her RLE cellulitis with worsening proximal thigh pain for the past 2-3 days. h/o difficult to control psoriasis IV antibiotics ID and dermatology f/u slightly worse increase in LFTs, GI eval; liver US f/u blood cx DVT pfx falls PFX d/w pt and staff
[2018-06-09 09:05] LABS: ALBUMIN 2.7 g/dl (3.4-5.0); ANION GAP 7 (8-16); BLOOD UREA NITROGEN 16 mg/dL (7-18); CALCIUM 8.6 mg/dL (8.5-10.1); CHLORIDE 103 mmol/L (98-107); CO2 29 mmol/L (21-32); CREATININE 1.1 mg/dL (0.55-1.02); GLUCOSE,RANDOM 113 mg/dL (74-106); POTASSIUM 3.9 mmol/L (3.5-5.1); SGOT/AST 68 U/L (15-37); SGPT/ALT 123 U/L (12-78); SODIUM 139 mmol/L (136-145)
[2018-06-09] MEDS: VANCOMYCIN 1 GM PREMIX - 1 GM/200 ML BAG IVPB SCH ×2 (09:05→22:03)
[2018-06-09 09:08] LABS: ALK PHOS 261 U/L (45-117); BILIRUBIN,TOTAL 0.3 mg/dL (0.2-1.0); TOT PROT 6.5 g/dl (6.4-8.2)
[2018-06-09] MEDS: APREMILAST PO SCH ×2 (09:16→21:18)
[2018-06-09] MEDS: ZILEUTON PO SCH ×2 (09:16→21:18)
[2018-06-09] MEDS: PATIENT'S OWN MEDICATION (NON-FORMULARY) (Umeclidinium Bromide [Incruse Ellipta] 62.5 MCG) IH SCH (09:17)
[2018-06-09] MEDS: ASPIRIN COATED 81 MG TABLET.EC PO SCH (09:17)
[2018-06-09] MEDS: QVAR 80 MCG IH SCH ×2 (09:17→21:18)
[2018-06-09] MEDS: POTASSIUM CHLORIDE TABS 10 MEQ TABLET.ER (FP) PO SCH (09:17)
[2018-06-09] MEDS: HEPARIN NA (PORCINE) 5,000 UNITS/ML 1ML VIAL SQ SCH ×2 (09:18→21:55)
[2018-06-09] MEDS: LOSARTAN 50MG/HCTZ 12.5MG 1 TAB (FP) PO SCH (09:18)
--- NOTE | 2018-06-09 16:02 | PN ---
Progress Note, Physician History of Present Illness: Awake, alert Seated in bed No c/o R LE pain No c/o fever/ chills Tolerating Vancomycin/ Aztreonam Temps down- afebrile WBC WNL - Current Medication List Current Medications: Active Medications Acetaminophen (Tylenol -) 650 mg PO Q6H PRN PRN Reason: FEVER/PAIN LEVEL 1-5 Last Admin: 06/08/18 17:39 Dose: 650 mg Al Hydroxide/Mg Hydroxide (Mylanta Oral Suspension -) 20 ml PO Q6H PRN PRN Reason: INDIGESTION Last Admin: 06/08/18 17:38 Dose: 20 ml Aspirin (Ecotrin -) 81 mg PO DAILY [facility] Last Admin: 06/09/18 09:17 Dose: 81 mg Aspirin (Asa -) 81 mg PO HS [facility] Last Admin: 06/08/18 21:24 Dose: 81 mg Atorvastatin Calcium (Lipitor -) 20 mg PO HS [facility] Last Admin: 06/08/18 21:24 Dose: 20 mg HCTZ/Losartan Potassium (Hyzaar -) 2 tab PO DAILY [facility] Last Admin: 06/09/18 09:18 Dose: 2 tab Heparin Sodium (Porcine) (Heparin -) 5,000 unit SQ BID [facility] Last Admin: 06/09/18 09:18 Dose: 5,000 unit Hydrocortisone (Hytone 1% Cream -) 1 applic TP BID [facility] Aztreonam 1 gm/ Dextrose 50 mls @ 100 mls/hr IVPB Q8H-IV [facility]; Protocol Last Admin: 06/09/18 11:01 Dose: 100 mls/hr Vancomycin HCl (Vancomycin 1 Gm Premix -) 1 gm in 200 mls @ 133.333 mls/hr IVPB BID@0900,2100 [facility]; Protocol Last Admin: 06/09/18 09:05 Dose: 133.333 mls/hr Levothyroxine Sodium (Synthroid -) 25 mcg PO DAILY@0700 [facility] Last Admin: 06/09/18 06:02 Dose: 25 mcg Non-Formulary Medication (Apremilast [Otezla]) 1 each PO BID [facility] Last Admin: 06/09/18 09:16 Dose: 1 each Non-Formulary Medication (Umeclidinium [place] [Incruse Ellipta]) 62.5 mcg IH DAILY [facility] Last Admin: 06/09/18 09:17 Dose: 62.5 mcg Non-Formulary Medication (Zileuton [Zyflo Cr]) 1,200 mg PO BID [facility] Last Admin: 06/09/18 09:16 Dose: 1,200 mg Qvar 80 Mcg Inhaler (- Patient Own Med) 2 each IH BID [facility] Last Admin: 06/09/18 09:17 Dose: 2 each Non-Formulary Medication (Beclomethasone Dipropionate [Qvar Redihaler]) 2 inh IH BID [facility] Non-Formulary Medication (Umeclidinium [place] [Incruse Ellipta]) 62.5 mcg IH BID [facility] Potassium Chloride (K-Dur -) 20 meq PO DAILY [facility] Last Admin: 06/09/18 09:17 Dose: 20 meq Ranitidine HCl (Zantac -) 150 mg PO HS [facility] Last Admin: 06/08/18 21:24 Dose: 150 mg - Objective Vital Signs: Vital Signs Temperature 98.1 F 06/09/18 15:16 Pulse Rate 89 06/09/18 15:16 Respiratory Rate 18 06/09/18 15:16 Blood Pressure 118/56 06/09/18 15:16 O2 Sat by Pulse Oximetry (%) 100 06/09/18 10:00 Constitutional: Yes: No Distress Eyes: Yes: Conjunctiva Clear Cardiovascular: Yes: Regular Rate and Rhythm, S1, S2 Respiratory: Yes: CTA Bilaterally Gastrointestinal: Yes: Normal Bowel Sounds, Soft. No: Tenderness Extremities: Yes: Other (erythema R LE improved. Lymphangitis resolved) Labs: CBC, BMP 06/09/18 07:00 06/09/18 06:55 INR, PTT INR 1.27 (0.83-1.09) H 06/06/18 08:18 Assessment/Plan Cellulitis/ lymphangitis R LE Fever/ leukocytosis R/O sepsis Hx psoriasis on otezla PCN allergy Continue empiric vancomycin/ aztreonam
--- NOTE | 2018-06-09 16:17 | CONSULT ---
Consult Consult Specialty:: dermatology - History Source History Provided By: Patient - Past Medical History ...: No - Alcohol/Substance Use Hx Alcohol Use: Yes (socially) - Smoking History Smoking history: Never smoked Have you smoked in the past 12 months: No Home Medications - Allergies Allergies/Adverse Reactions: Allergies Allergy/AdvReac Type Severity Reaction Status Date / Time Penicillins Allergy Verified 06/06/18 07:59 - Home Medications Home Medications: Ambulatory Orders Apremilast [Otezla] 1 each PO BID 06/06/18 Aspirin [ASA -] 81 mg PO HS 06/06/18 Atorvastatin Calcium 20 mg PO DAILY 06/06/18 Beclomethasone Dipropionate [Qvar Redihaler] 2 inh IH BID 06/06/18 Levothyroxine [Synthroid -] 25 mcg PO DAILY 06/06/18 Losartan/Hydrochlorothiazide [Losartan-Hctz 100-25 mg Tab] 1 each PO DAILY 06/06 Umeclidinium [place] [Incruse Ellipta] 62.5 mcg IH BID 06/06/18 Umeclidinium [place] [Incruse Ellipta] 62.5 mcg IH DAILY 06/06/18 Zileuton [Zyflo Cr] 600 mg PO BID 06/06/18 Physical Exam Vital Signs: Vital Signs Temperature 98.1 F 06/09/18 15:16 Pulse Rate 89 06/09/18 15:16 Respiratory Rate 18 06/09/18 15:16 Blood Pressure 118/56 06/09/18 15:16 O2 Sat by Pulse Oximetry (%) 100 06/09/18 10:00 Labs: CBC, BMP 06/09/18 07:00 06/09/18 06:55 Assessment/Plan Patient is well known to me and is being treated with Otezla for Psoriasis. I have discussed the plan of treatment with Dr Frida Dove. Patients psoriasis is not being controlled with Otezla and she has an appointment to follow up with a psoriasis expert to be evaluated for a new biologic . She has been treated with steroids and Soriatane in the past . She is currently being treated with IV antibiotic for recurrent cellulitis of the right lower extremity. The swelling and erythema has resolved above the knee . the remaining erythema is confined to the lower half of the right calf. The skin is intact and there are no areas of psoriasis that is inflammed other than the right medial malleolus. please apply hydrocotisone prn to pruritic areas and continue emmolient . patient will be discharged off of Otezla and on PO prednisone 10 mg QD and Doxycycline 100 mg BID with follow up with Dr Gomez
[2018-06-09] MEDS ORDERED: PT OWN MED DRAWER 7, Y5N ONE ×2 (17:24→19:09)
[2018-06-09] MEDS: MAG HYDROX/AL HYDROX/SIMETH 30 ML UNIT-DOSE CUP PO PRN (18:30)
[2018-06-09] MEDS: HYDROCORTISONE 1% TOPICAL CREAM 30 GM TUBE TP SCH (21:17)
[2018-06-09] MEDS: ASPIRIN 81 MG CHEWABLE TABLETS PO SCH (21:17)
[2018-06-09] MEDS: RANITIDINE HCL 150 MG TABLET (FP) PO SCH (21:17)
[2018-06-09] MEDS: ATORVASTATIN CA 20 MG TABLET (FP) PO SCH (21:17)
--- NOTE | 2018-06-09 21:21 | CON.GI ---
Consult Consult Specialty:: Gastroenterology Referred by:: Dr. Dove Reason for Consultation:: abnormal LFTs - History of Present Illness Chief Complaint: RLE cellulitis History of Present Illness: 62F on Otezla for psoriasis has been on a series of antibiotics for RLE cellulitis. It has responded to a month of doxycycline only to flare with a fever and chill when the course was completed. She has a fatty liver but tells me that she has nover had enzyme elevations. She was screened for viral hepatitis in the past. She denies alcohol abuse, IVDA,tattoos or transfusions. NO FH of liver disease. She has been followed by Dr Tyesha Baez who did an EGD and a colonoscopy remotely which revealed diverticulosis and GERD. NO polyps. NO FH of of GI malinanacy. She was diagnosed with IBS. She moves her bowels regularly. - Past Medical History Cardio/Vascular: Yes: HTN, Hyperlipdemia Pulmonary: Yes: Asthma, COPD Gastrointestinal: Yes: Diverticulosis, GERD, Irritable Bowel Disease Hepatobiliary: Yes: Other (fatty liver) ...: No Infectious Disease: Yes: Other (RLE cellulitis) Musculoskeletal: Yes: Chronic low back pain (disc disease and scolosis) Endocrine: Yes: Hypothyroidism (following hemithyroidectomy for benign nodule) Dermatology: Yes: Psoriasis - Past Surgical History Past Surgical History: Yes: Appendectomy, Colonoscopy, Upper Endoscopy Additional Surgical History: s/p left hemithyroidectomy for benign nodule - Alcohol/Substance Use Hx Alcohol Use: Yes (socially, weekends only) - Smoking History Smoking history: Never smoked Have you smoked in the past 12 months: No - Social History Usual Living Arrangement: With Spouse ADL: Independent 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 Place of : [facility] History of Recent Travel: No ([place], [place] in the past) Home Medications - Allergies Allergies/Adverse Reactions: Allergies Allergy/AdvReac Type Severity Reaction Status Date / Time Penicillins Allergy Verified 06/06/18 07:59 - Home Medications Home Medications: Ambulatory Orders Apremilast [Otezla] 1 each PO BID 06/06/18 Aspirin [ASA -] 81 mg PO HS 06/06/18 Atorvastatin Calcium 20 mg PO DAILY 06/06/18 Beclomethasone Dipropionate [Qvar Redihaler] 2 inh IH BID 06/06/18 Levothyroxine [Synthroid -] 25 mcg PO DAILY 06/06/18 Losartan/Hydrochlorothiazide [Losartan-Hctz 100-25 mg Tab] 1 each PO DAILY 06/06 Umeclidinium [place] [Incruse Ellipta] 62.5 mcg IH BID 06/06/18 Umeclidinium [place] [Incruse Ellipta] 62.5 mcg IH DAILY 06/06/18 Zileuton [Zyflo Cr] 600 mg PO BID 06/06/18 Family Disease History - Family Disease History Family Disease History: Heart Disease: Father ( 60 CHF, COPD), CA: Mother ( 40s of laryngeal cancer), Respiratory: Father, Other: Brother (alcoholism) Review of Systems - Review of Systems Constitutional: reports: Chills, Fever Eyes: reports: No Symptoms HENT: reports: No Symptoms Neck: reports: No Symptoms Cardiovascular: reports: No Symptoms Respiratory: reports: Exercise Intolerance, Wheezing Gastrointestinal: reports: Indigestion, Other (acid reflux) Genitourinary: reports: No Symptoms Musculoskeletal: reports: Back Pain Integumentary: reports: Erythema (RLE), Rash (psoriatic) Endocrine: reports: No Symptoms Physical Exam-GI Vital Signs: Vital Signs Temperature 98.2 F 06/09/18 18:00 Pulse Rate 80 06/09/18 18:00 Respiratory Rate 18 06/09/18 18:00 Blood Pressure 122/64 06/09/18 18:00 O2 Sat by Pulse Oximetry (%) 100 06/09/18 10:00 CBC,CMP WBC 9.9 K/mm3 (4.0-10.0) 06/09/18 07:00 RBC 3.96 M/mm3 (3.60-5.2) 06/09/18 07:00 Hgb 11.2 GM/dL (10.7-15.3) 06/09/18 07:00 Hct 33.7 % (32.4-45.2) 06/09/18 07:00 MCV 85.1 fl (80-96) 06/09/18 07:00 MCH 28.3 pg (25.7-33.7) 06/09/18 07:00 MCHC 33.3 g/dl (32.0-36.0) 06/09/18 07:00 RDW 14.6 % (11.6-15.6) 06/09/18 07:00 Plt Count 288 K/MM3 (134-434) 06/09/18 07:00 MPV 7.7 fl (7.5-11.1) 06/09/18 07:00 Absolute Neuts (auto) 6.9 # 06/09/18 07:00 Neutrophils % 70.2 % (42.8-82.8) 06/09/18 07:00 Lymphocytes % 16.1 % (8-40) D 06/09/18 07:00 Monocytes % 7.9 % (3.8-10.2) 06/09/18 07:00 Eosinophils % 4.8 % (0-4.5) H D 06/09/18 07:00 Basophils % 1.0 % (0-2.0) 06/09/18 07:00 Nucleated RBC % 0 % (0-0) 06/09/18 07:00 ESR 94 mm/hr (0-30) H 06/07/18 06:15 Sodium 139 mmol/L (136-145) 06/09/18 06:55 Potassium 3.9 mmol/L (3.5-5.1) 06/09/18 06:55 Chloride 103 mmol/L (98-107) 06/09/18 06:55 Carbon Dioxide 29 mmol/L (21-32) 06/09/18 06:55 Anion Gap 7 (8-16) L 06/09/18 06:55 BUN 16 mg/dL (7-18) 06/09/18 06:55 Creatinine 1.1 mg/dL (0.55-1.02) H 06/09/18 06:55 Creat Clearance w eGFR 50.17 (>60) 06/09/18 06:55 Random Glucose 113 mg/dL (74-106) H 06/09/18 06:55 Lactic Acid 1.2 mmol/L (0.0-2.0) 06/06/18 08:18 Calcium 8.6 mg/dL (8.5-10.1) 06/09/18 06:55 Phosphorus 3.4 mg/dL (2.5-4.9) 06/06/18 08:18 Magnesium 2.1 mg/dL (1.8-2.4) 06/06/18 08:18 Total Bilirubin 0.3 mg/dL (0.2-1.0) 06/09/18 06:55 AST 68 U/L (15-37) H 06/09/18 06:55 ALT 123 U/L (12-78) H 06/09/18 06:55 Alkaline Phosphatase 261 U/L (45-117) H D 06/09/18 06:55 Troponin I < 0.02 ng/ml (0.00-0.05) 06/06/18 08:18 B-Natriuretic Peptide 154.62 pg/ml (5-125) H 06/06/18 08:18 Total Protein 6.5 g/dl (6.4-8.2) 06/09/18 06:55 Albumin 2.7 g/dl (3.4-5.0) L 06/09/18 06:55 Current Medications Generic Name Dose Route Start Last Admin Trade Name Freq PRN Reason Stop Dose Admin Acetaminophen 650 mg 06/06/18 22:54 06/08/18 17:39 Tylenol - PO 650 mg Q6H PRN Administration FEVER/PAIN LEVEL 1-5 Al Hydroxide/Mg Hydroxide 20 ml 06/07/18 21:14 06/09/18 18:30 Mylanta Oral Suspension - PO 20 ml Q6H PRN Administration INDIGESTION Aspirin 81 mg 06/07/18 10:00 06/09/18 09:17 Ecotrin - PO 81 mg DAILY JOSH Administration Aspirin 81 mg 06/07/18 22:00 06/09/18 21:17 Asa - PO 81 mg HS JOSH Administration Atorvastatin Calcium 20 mg 06/07/18 10:00 06/09/18 21:17 Lipitor - PO 20 mg HS JOSH Administration HCTZ/Losartan Potassium 2 tab 06/07/18 10:00 06/09/18 09:18 Hyzaar - PO 2 tab DAILY JOSH Administration Heparin Sodium (Porcine) 5,000 unit 06/06/18 22:00 06/09/18 09:18 Heparin - SQ 5,000 unit BID JOSH Administration Hydrocortisone 1 applic 06/09/18 22:00 06/09/18 21:17 Hytone 1% Cream - TP 1 applic BID JOSH Administration Aztreonam 1 gm/ Dextrose 50 mls @ 100 mls/hr 06/06/18 18:00 06/09/18 17:27 IVPB 100 mls/hr Q8H-IV JOSH Administration Protocol Vancomycin HCl 1 gm in 200 mls @ 133.333 mls/hr 06/06/18 21:00 06/09/18 09:05 Vancomycin 1 Gm Premix - IVPB 133.333 mls/hr BID@0900,2100 JOSH Administration Protocol Levothyroxine Sodium 25 mcg 06/07/18 07:00 06/09/18 06:02 Synthroid - PO 25 mcg DAILY@0700 JOSH Administration Non-Formulary Medication 1 each 06/07/18 10:00 06/09/18 21:18 Apremilast [Otezla] PO 1 each BID JOSH Administration Non-Formulary Medication 62.5 mcg 06/07/18 10:00 06/09/18 09:17 Umeclidinium [place] [Incruse Ellipta] IH 62.5 mcg DAILY JOSH Administration Non-Formulary Medication 1,200 mg 06/07/18 10:00 06/09/18 21:18 Zileuton [Zyflo Cr] PO 1,200 mg BID JOSH Administration Qvar 80 Mcg Inhaler 2 each 06/07/18 10:00 06/09/18 21:18 - Patient Own Med IH 2 each BID JOSH Administration Non-Formulary Medication 2 inh 06/07/18 22:00 Beclomethasone Dipropionate [Qvar Redihaler] IH BID JOSH Non-Formulary Medication 62.5 mcg 06/07/18 22:00 Umeclidinium [place] [Incruse Ellipta] IH BID JOSH Potassium Chloride 20 meq 06/07/18 11:15 06/09/18 09:17 K-Dur - PO 20 meq DAILY JOSH Administration Ranitidine HCl 150 mg 06/07/18 22:00 06/09/18 21:17 Zantac - PO 150 mg HS JOSH Administration Constitutional: Yes: Calm Eyes: Yes: Conjunctiva Clear HENT: Yes: Atraumatic Neck: Yes: Trachea Midline, Other (healed incision) Cardiovascular: Yes: Regular Rate and Rhythm Respiratory: Yes: CTA Bilaterally Gastrointestinal Inspection: Yes: Scars (oblique RLQ) ...Auscultate: Yes: Normoactive Bowel Sounds ...Palpate: Yes: Soft, Other (obese, nontender) ...Rectal Exam: Yes: Guaiac Negative (no rectal masses) Edema: No Peripheral Pulses WNL: Yes Integumentary: Yes: Erythema (RLE) Neurological: Yes: Alert, Oriented Labs: CBC, BMP 06/09/18 07:00 06/09/18 06:55 INR, PTT INR 1.27 (0.83-1.09) H 06/06/18 08:18 Laboratory Tests 06/06/18 06/06/18 06/06/18 08:18 08:18 08:18 Plt Count PT with INR 14.30 H AST 68 H ALT 72 Alkaline Phosphatase 170 H B-Natriuretic Peptide 154.62 H Albumin 06/07/18 06/09/18 06/09/18 06:15 06:55 07:00 Plt Count 288 PT with INR AST 41 H 68 H ALT 68 123 H Alkaline Phosphatase 155 H D 261 H D B-Natriuretic Peptide Albumin 2.7 L Problem List - Problems (1) Abnormal liver function tests Assessment/Plan: I suspect that these abnormalities reflect a reactive hepatopathy to bacteremia or a DILI ( drug induced liver injury) but a liver abscess and gallstones disease need to be excluded. Congestive hepatopathy is not likely given her BNP but will order an echocardiogram and SBE needs to be excluded. I will also screen for chronic liver diseases and check her Fibrosure as she is a candidate for GARCIA. She will probably return to Dr Arlene Baez for her colon cancer screening. Code(s): R94.5 - ABNORMAL RESULTS OF LIVER FUNCTION STUDIES (2) Psoriasis Code(s): L40.9 - PSORIASIS, UNSPECIFIED (3) Hypothyroidism Code(s): E03.9 - HYPOTHYROIDISM, UNSPECIFIED (4) Diverticulosis Code(s): K57.90 - DVRTCLOS OF INTEST, PART UNSP, W/O PERF OR ABSCESS W/O BLEED Qualifiers: Diverticulosis site: diverticulosis of large intestine (5) Asthma Code(s): J45.909 - UNSPECIFIED ASTHMA, UNCOMPLICATED (6) Fatty (change of) liver, not elsewhere classified Code(s): K76.0 - FATTY (CHANGE OF) LIVER, NOT ELSEWHERE CLASSIFIED (7) GERD (gastroesophageal reflux disease) Code(s): K21.9 - GASTRO-ESOPHAGEAL REFLUX DISEASE WITHOUT ESOPHAGITIS Qualifiers: Esophagitis presence: without esophagitis Qualified Code(s): K21.9 - Gastro -esophageal reflux disease without esophagitis (8) Cellulitis Code(s): L03.90 - CELLULITIS, UNSPECIFIED Qualifiers: Site of cellulitis: extremity Site of cellulitis of extremity: lower extremity Laterality: right Qualified Code(s): L03.115 - Cellulitis of right lower limb
[2018-06-10] MEDS: AZTREONAM 1 GM in DEXTROSE 5%-WATER - 50 ML IVPB SCH ×3 (01:19→17:46)
[2018-06-10] MEDS: LEVOTHYROXINE NA 25 MCG TABLET (FP) PO SCH (06:08)
--- NOTE | 2018-06-10 07:55 | PN ---
Progress Note, Physician Chief Complaint: seen by GI; labs and US d/w pt, hepatomegaly ordered echo r/o CHF/ hepatic congestion - Current Medication List Current Medications: Active Medications Acetaminophen (Tylenol -) 650 mg PO Q6H PRN PRN Reason: FEVER/PAIN LEVEL 1-5 Last Admin: 06/08/18 17:39 Dose: 650 mg Al Hydroxide/Mg Hydroxide (Mylanta Oral Suspension -) 20 ml PO Q6H PRN PRN Reason: INDIGESTION Last Admin: 06/09/18 18:30 Dose: 20 ml Aspirin (Ecotrin -) 81 mg PO DAILY [facility] Last Admin: 06/09/18 09:17 Dose: 81 mg Aspirin (Asa -) 81 mg PO HS JOSH Last Admin: 06/09/18 21:17 Dose: 81 mg Atorvastatin Calcium (Lipitor -) 20 mg PO HS [facility] Last Admin: 06/09/18 21:17 Dose: 20 mg HCTZ/Losartan Potassium (Hyzaar -) 2 tab PO DAILY [facility] Last Admin: 06/09/18 09:18 Dose: 2 tab Heparin Sodium (Porcine) (Heparin -) 5,000 unit SQ BID [facility] Last Admin: 06/09/18 21:55 Dose: 5,000 unit Hydrocortisone (Hytone 1% Cream -) 1 applic TP BID [facility] Last Admin: 06/09/18 21:17 Dose: 1 applic Aztreonam 1 gm/ Dextrose 50 mls @ 100 mls/hr IVPB Q8H-IV [facility]; Protocol Last Admin: 06/10/18 01:19 Dose: 100 mls/hr Vancomycin HCl (Vancomycin 1 Gm Premix -) 1 gm in 200 mls @ 133.333 mls/hr IVPB BID@0900,2100 [facility]; Protocol Last Admin: 06/09/18 22:03 Dose: 133.333 mls/hr Levothyroxine Sodium (Synthroid -) 25 mcg PO DAILY@0700 [facility] Last Admin: 06/10/18 06:08 Dose: 25 mcg Non-Formulary Medication (Apremilast [Otezla]) 1 each PO BID [facility] Last Admin: 06/09/18 21:18 Dose: 1 each Non-Formulary Medication (Umeclidinium [place] [Incruse Ellipta]) 62.5 mcg IH DAILY [facility] Last Admin: 06/09/18 09:17 Dose: 62.5 mcg Non-Formulary Medication (Zileuton [Zyflo Cr]) 1,200 mg PO BID [facility] Last Admin: 06/09/18 21:18 Dose: 1,200 mg Qvar 80 Mcg Inhaler (- Patient Own Med) 2 each IH BID JOSH Last Admin: 06/09/18 21:18 Dose: 2 each Non-Formulary Medication (Beclomethasone Dipropionate [Qvar Redihaler]) 2 inh IH BID JOSH Non-Formulary Medication (Umeclidinium [place] [Incruse Ellipta]) 62.5 mcg IH BID JOSH Potassium Chloride (K-Dur -) 20 meq PO DAILY [facility] Last Admin: 06/09/18 09:17 Dose: 20 meq Ranitidine HCl (Zantac -) 150 mg PO HS [facility] Last Admin: 06/09/18 21:17 Dose: 150 mg - Objective Vital Signs: Vital Signs Temperature 98.1 F 06/10/18 06:41 Pulse Rate 80 06/10/18 06:41 Respiratory Rate 20 06/10/18 06:41 Blood Pressure 125/72 06/10/18 06:41 O2 Sat by Pulse Oximetry (%) 100 06/09/18 21:00 Constitutional: Yes: No Distress, Calm Eyes: Yes: Conjunctiva Clear HENT: Yes: Atraumatic Neck: Yes: Supple Cardiovascular: Yes: Regular Rate and Rhythm Respiratory: Yes: CTA Bilaterally Gastrointestinal: Yes: Soft. No: Distention Genitourinary: No: CVA Tenderness - Left, CVA Tenderness - Right Musculoskeletal: No: Joint Stiffness, Joint Swelling Extremities: Yes: Erythema (less on r leg). No: Cold, Cool, Cyanosis Edema: No Peripheral Pulses WNL: Yes Integumentary: No: Venous Stasis Changes Neurological: Yes: WNL, Alert, Oriented ...Motor Strength: WNL Psychiatric: Yes: WNL, Alert, Oriented. No: Agitated, Suicidal Ideation Labs: CBC, BMP 06/09/18 07:00 06/09/18 06:55 INR, PTT INR 1.27 (0.83-1.09) H 06/06/18 08:18 - ....Imaging Other: Report Reviewed Assessment/Plan Christa Perez is a 62yo woman with a PMH of asthma, atypical COPD, psoriasis, and recently treated for RLE cellulitis who presents with malaise, fevers to 101 at home, headache, SAGASTUME, and recurrence of her RLE cellulitis with worsening proximal thigh pain for the past 2-3 days. h/o difficult to control psoriasis IV antibiotics ID and dermatology f/u slightly worse increase in LFTs, GI eval; liver US, echo as ordered DVT pfx, falls PFX d/w pt and staff
[2018-06-10 09:13] LABS: CHLORIDE 100 mmol/L (98-107); POTASSIUM 4.1 mmol/L (3.5-5.1); SODIUM 135 mmol/L (136-145)
[2018-06-10] MEDS ORDERED: PT OWN MED DRAWER 7, Y5N ONE ×2 (09:50→20:53)
[2018-06-10] MEDS: ASPIRIN COATED 81 MG TABLET.EC PO SCH (09:53)
[2018-06-10] MEDS: HYDROCORTISONE 1% TOPICAL CREAM 30 GM TUBE TP SCH ×2 (09:53→22:50)
[2018-06-10] MEDS: POTASSIUM CHLORIDE TABS 10 MEQ TABLET.ER (FP) PO SCH (09:53)
[2018-06-10] MEDS: HEPARIN NA (PORCINE) 5,000 UNITS/ML 1ML VIAL SQ SCH ×2 (09:53→21:04)
[2018-06-10] MEDS: LOSARTAN 50MG/HCTZ 12.5MG 1 TAB (FP) PO SCH (09:53)
[2018-06-10] MEDS: ZILEUTON PO SCH ×2 (10:03→21:15)
[2018-06-10] MEDS: QVAR 80 MCG IH SCH ×2 (10:03→22:30)
[2018-06-10] MEDS: APREMILAST PO SCH (10:03)
[2018-06-10] MEDS: PATIENT'S OWN MEDICATION (NON-FORMULARY) (Umeclidinium Bromide [Incruse Ellipta] 62.5 MCG) IH SCH (10:04)
[2018-06-10 10:18] LABS: AMYLASE 34 U/L (25-115); GAMMA GLUTAMYL TRANSPEPTIDASE 329 U/L (5-85); LIPASE 139 U/L (73-393)
[2018-06-10 10:26] LABS: ALBUMIN 2.8 g/dl (3.4-5.0); ALK PHOS 299 U/L (45-117); BILIRUBIN,TOTAL 0.3 mg/dL (0.2-1.0); BLOOD UREA NITROGEN 17 mg/dL (7-18); CALCIUM 8.9 mg/dL (8.5-10.1); GLUCOSE,RANDOM 111 mg/dL (74-106); SGOT/AST 61 U/L (15-37); TOT PROT 6.8 g/dl (6.4-8.2)
[2018-06-10 11:02] LABS: ANION GAP 10 (8-16); CO2 25 mmol/L (21-32); SGPT/ALT 113 U/L (12-78)
--- NOTE | 2018-06-10 11:15 | PN ---
GI Progress Note Subjective: GI Note: NO GI complaints. Had sonogram but not yet read. Alkaline phosphatase continues to rise while transaminases are declining. Has not yet started steroids. - Objective Vital Signs: Vital Signs Temperature 98.1 F 06/10/18 06:41 Pulse Rate 80 06/10/18 06:41 Respiratory Rate 20 06/10/18 06:41 Blood Pressure 125/72 06/10/18 06:41 O2 Sat by Pulse Oximetry (%) 100 06/09/18 21:00 Laboratory Tests 06/09/18 06/10/18 06/10/18 06:55 07:15 07:15 Total Bilirubin 0.3 0.3 GGT 329 H AST 68 H 61 H ALT 123 H 113 H Alkaline Phosphatase 261 H D 299 H D Constitutional: Calm ...Auscultate: Yes: Normoactive Bowel Sounds ...Palpate: Yes: Soft, Other (nontender) Labs: CBC, BMP 06/09/18 07:00 06/10/18 07:15 INR, PTT INR 1.27 (0.83-1.09) H 06/06/18 08:18 Problem List - Problems (1) Abnormal liver function tests Assessment/Plan: Suspect a reactive hepatopathy to bacteremia or a DILI ( drug induced liver injury), Await sonogram to exclude a liver abscess and gallstones. Code(s): R94.5 - ABNORMAL RESULTS OF LIVER FUNCTION STUDIES (2) Psoriasis Code(s): L40.9 - PSORIASIS, UNSPECIFIED (3) Hypothyroidism Code(s): E03.9 - HYPOTHYROIDISM, UNSPECIFIED (4) Diverticulosis Code(s): K57.90 - DVRTCLOS OF INTEST, PART UNSP, W/O PERF OR ABSCESS W/O BLEED Qualifiers: Diverticulosis site: diverticulosis of large intestine (5) Asthma Code(s): J45.909 - UNSPECIFIED ASTHMA, UNCOMPLICATED (6) Fatty (change of) liver, not elsewhere classified Code(s): K76.0 - FATTY (CHANGE OF) LIVER, NOT ELSEWHERE CLASSIFIED (7) GERD (gastroesophageal reflux disease) Code(s): K21.9 - GASTRO-ESOPHAGEAL REFLUX DISEASE WITHOUT ESOPHAGITIS Qualifiers: Esophagitis presence: without esophagitis Qualified Code(s): K21.9 - Gastro -esophageal reflux disease without esophagitis (8) Cellulitis Code(s): L03.90 - CELLULITIS, UNSPECIFIED Qualifiers: Site of cellulitis: extremity Site of cellulitis of extremity: lower extremity Laterality: right Qualified Code(s): L03.115 - Cellulitis of right lower limb
[2018-06-10] MEDS: VANCOMYCIN 1 GM PREMIX - 1 GM/200 ML BAG IVPB SCH ×2 (12:14→21:04)
[2018-06-10] MEDS: predniSONE 10 MG TABLET (UD) PO SCH (15:16)
--- NOTE | 2018-06-10 15:40 | ECHO ---
Name: KARLY ARENAS Exam:Adult Echocardiogram Study Date: 06/10/2018 02:03 PM Age: 62 yrs Reason For Study: sepsis MMode/2D Measurements & Calculations IVSd: 0.87 cm Ao root diam: 2.7 cm LVIDd: 4.5 cm LA dimension: 3.5 cm LVIDs: 2.8 cm LVPWd: 0.80 cm EDV(Teich): 91.5 ml TAPSE: 3.1 cm ESV(Teich): 29.3 ml RV S Malina: 10.0 cm/sec Doppler Measurements & Calculations MV E max malina: 75.0 cm/sec Ao V2 max: 260.6 cm/sec MV A max malina: 90.8 cm/sec Ao max P.2 mmHg MV E/A: 0.83 Ao V2 mean: 186.3 cm/sec MV dec time: 0.22 sec Ao mean P.5 mmHg Ao V2 VTI: 51.8 cm AI P1/2t: 546.8 msec AI max malina: 360.5 cm/sec LV V1 max P.4 mmHg AI max P.3 mmHg LV V1 mean P.0 mmHg AI dec slope: 193.1 cm/sec2 LV V1 max: 92.8 cm/sec LV V1 mean: 66.0 cm/sec LV V1 VTI: 19.1 cm TR max malina: 182.6 cm/sec Med Peak E' Malina: 8.2 cm/sec TR max P.3 mmHg Med E/e': 9.2 Lat Peak E' Malina: 9.4 cm/sec Lat E/e': 8.0 Procedure The study was technically difficult with many images being suboptimal in quality. Left Ventricle The left ventricular size, thickness and function are normal. The left ventricular ejection fraction is normal. Regional wall motion abnormalities cannot be excluded due to limited visualization. Right Ventricle The right ventricle is not well visualized. Atria Normal left and right atrial size and function. Mitral Valve The mitral valve is not well visualized. There is no mitral valve stenosis. There is trace mitral regurgitation. Tricuspid Valve There is mild tricuspid valve thickening. There is no tricuspid stenosis. There is Trace to mild tric uspid regurgitation. Right ventricular systolic pressure is normal. Aortic Valve The aortic valve is not well visualized. No hemodynamically significant valvular aortic stenosis. Mil d to moderate aortic regurgitation. Pulmonic Valve The pulmonic valve is not well visualized. Great Vessels The aortic root is normal size. Pericardium/Pleura There is no pericardial effusion. Interpretation Summary The study was technically difficult with many images being suboptimal in quality. The left ventricular size, thickness and function are normal The left ventricular ejection fraction is normal. There is Trace to mild tricuspid regurgitation. Right ventricular systolic pressure is normal. Mild to moderate aortic regurgitation. Regional wall motion abnormalities cannot be excluded due to limited visualization. The right ventricle is not well visualized. There is trace mitral regurgitation. MD Hans Crowder 06/10/2018 03:39 PM
[2018-06-10] MEDS: MAG HYDROX/AL HYDROX/SIMETH 30 ML UNIT-DOSE CUP PO PRN (17:00)
[2018-06-10] MEDS: RANITIDINE HCL 150 MG TABLET (FP) PO SCH (21:04)
[2018-06-10] MEDS: ASPIRIN 81 MG CHEWABLE TABLETS PO SCH (21:04)
[2018-06-10] MEDS: ATORVASTATIN CA 20 MG TABLET (FP) PO SCH (21:04)
[2018-06-11] MEDS: AZTREONAM 1 GM in DEXTROSE 5%-WATER - 50 ML IVPB SCH ×3 (02:53→17:40)
[2018-06-11] MEDS: LEVOTHYROXINE NA 25 MCG TABLET (FP) PO SCH (06:41)
[2018-06-11 07:57] LABS: BASO % 1.3 % (0-2.0); EOS % 3.3 % (0-4.5); HEMATOCRIT 34.3 % (32.4-45.2); HEMOGLOBIN 11.4 GM/dL (10.7-15.3); LYMPH % 14.6 % (8-40); MCH 28.3 pg (25.7-33.7); MCHC 33.3 g/dl (32.0-36.0); MEAN CELL VOLUME 84.9 fl (80-96); MEAN PLT VOLUME 7.3 fl (7.5-11.1); MONO % 6.5 % (3.8-10.2); NEUT % 74.3 % (42.8-82.8); PLATELET COUNT 379 K/MM3 (134-434); RBC 4.04 M/mm3 (3.60-5.2); RDW 14.5 % (11.6-15.6); WHITE BLOOD COUNT 12.1 K/mm3 (4.0-10.0)
--- NOTE | 2018-06-11 08:16 | PN ---
GI Progress Note Subjective: GI Note: Songram does not reveal gallstones or ductal dilation. NO masses, Echo does not reveal tricuspid regurgitation or right ventricular failure. Yesterday' s and today's LFTs are still pending. - Objective Vital Signs: Vital Signs Temperature 98 F 06/11/18 06:39 Pulse Rate 78 06/11/18 06:39 Respiratory Rate 20 06/11/18 06:39 Blood Pressure 132/69 06/11/18 06:39 O2 Sat by Pulse Oximetry (%) 98 06/10/18 09:00 Constitutional: Calm ...Auscultate: Yes: Normoactive Bowel Sounds ...Palpate: Yes: Soft, Other (nontedner) Labs: INR, PTT INR 1.27 (0.83-1.09) H 06/06/18 08:18 Problem List - Problems (1) Abnormal liver function tests Assessment/Plan: Reactive hepatopathy vsDILI ( drug induced liver injury). Await repeat LFTs Code(s): R94.5 - ABNORMAL RESULTS OF LIVER FUNCTION STUDIES (2) Psoriasis Code(s): L40.9 - PSORIASIS, UNSPECIFIED (3) Hypothyroidism Code(s): E03.9 - HYPOTHYROIDISM, UNSPECIFIED (4) Diverticulosis Code(s): K57.90 - DVRTCLOS OF INTEST, PART UNSP, W/O PERF OR ABSCESS W/O BLEED Qualifiers: Diverticulosis site: diverticulosis of large intestine (5) Asthma Code(s): J45.909 - UNSPECIFIED ASTHMA, UNCOMPLICATED (6) Fatty (change of) liver, not elsewhere classified Code(s): K76.0 - FATTY (CHANGE OF) LIVER, NOT ELSEWHERE CLASSIFIED (7) GERD (gastroesophageal reflux disease) Code(s): K21.9 - GASTRO-ESOPHAGEAL REFLUX DISEASE WITHOUT ESOPHAGITIS Qualifiers: Esophagitis presence: without esophagitis Qualified Code(s): K21.9 - Gastro -esophageal reflux disease without esophagitis (8) Cellulitis Code(s): L03.90 - CELLULITIS, UNSPECIFIED Qualifiers: Site of cellulitis: extremity Site of cellulitis of extremity: lower extremity Laterality: right Qualified Code(s): L03.115 - Cellulitis of right lower limb
[2018-06-11] MEDS: HYDROCORTISONE 1% TOPICAL CREAM 30 GM TUBE TP SCH ×2 (09:12→21:03)
[2018-06-11] MEDS: QVAR 80 MCG IH SCH ×2 (09:12→21:06)
[2018-06-11] MEDS: ZILEUTON PO SCH ×2 (09:12→21:07)
[2018-06-11] MEDS: PATIENT'S OWN MEDICATION (NON-FORMULARY) (Umeclidinium Bromide [Incruse Ellipta] 62.5 MCG) IH SCH (09:12)
[2018-06-11 09:17] LABS: CHLORIDE 104 mmol/L (98-107); POTASSIUM 4.5 mmol/L (3.5-5.1); SODIUM 141 mmol/L (136-145)
[2018-06-11] MEDS ORDERED: PT OWN MED DRAWER 7, Y5N ONE ×4 (09:30→21:14)
[2018-06-11] MEDS: POTASSIUM CHLORIDE TABS 10 MEQ TABLET.ER (FP) PO SCH (09:34)
[2018-06-11] MEDS: HEPARIN NA (PORCINE) 5,000 UNITS/ML 1ML VIAL SQ SCH ×2 (09:34→21:02)
[2018-06-11] MEDS: LOSARTAN 50MG/HCTZ 12.5MG 1 TAB (FP) PO SCH (09:34)
[2018-06-11] MEDS: ASPIRIN COATED 81 MG TABLET.EC PO SCH (09:34)
[2018-06-11] MEDS: predniSONE 10 MG TABLET (UD) PO SCH (09:34)
[2018-06-11 10:01] LABS: ALBUMIN 2.8 g/dl (3.4-5.0); ALK PHOS 333 U/L (45-117); ANION GAP 12 (8-16); BILIRUBIN,DIRECT < 0.2 mg/dL (0.0-0.2); BILIRUBIN,TOTAL 0.3 mg/dL (0.2-1.0); BLOOD UREA NITROGEN 22 mg/dL (7-18); CALCIUM 9.8 mg/dL (8.5-10.1); CO2 25 mmol/L (21-32); CREATININE 0.9 mg/dL (0.55-1.02); GLUCOSE,RANDOM 97 mg/dL (74-106); SGOT/AST 76 U/L (15-37); SGPT/ALT 121 U/L (12-78); TOT PROT 6.8 g/dl (6.4-8.2)
[2018-06-11] MEDS: VANCOMYCIN 1 GM PREMIX - 1 GM/200 ML BAG IVPB SCH ×2 (10:46→20:08)
--- NOTE | 2018-06-11 12:34 | PN ---
Progress Note, Physician Chief Complaint: leg is better less rash less pain no fever - Current Medication List Current Medications: Active Medications Acetaminophen (Tylenol -) 650 mg PO Q6H PRN PRN Reason: FEVER/PAIN LEVEL 1-5 Last Admin: 06/08/18 17:39 Dose: 650 mg Al Hydroxide/Mg Hydroxide (Mylanta Oral Suspension -) 20 ml PO Q6H PRN PRN Reason: INDIGESTION Last Admin: 06/10/18 17:00 Dose: 20 ml Aspirin (Ecotrin -) 81 mg PO DAILY [facility] Last Admin: 06/11/18 09:34 Dose: 81 mg Atorvastatin Calcium (Lipitor -) 20 mg PO HS [facility] Last Admin: 06/10/18 21:04 Dose: 20 mg HCTZ/Losartan Potassium (Hyzaar -) 2 tab PO DAILY [facility] Last Admin: 06/11/18 09:34 Dose: 2 tab Heparin Sodium (Porcine) (Heparin -) 5,000 unit SQ BID [facility] Last Admin: 06/11/18 09:34 Dose: 5,000 unit Hydrocortisone (Hytone 1% Cream -) 1 applic TP BID [facility] Last Admin: 06/11/18 09:12 Dose: 1 applic Aztreonam 1 gm/ Dextrose 50 mls @ 100 mls/hr IVPB Q8H-IV [facility]; Protocol Last Admin: 06/11/18 09:35 Dose: 100 mls/hr Vancomycin HCl (Vancomycin 1 Gm Premix -) 1 gm in 200 mls @ 133.333 mls/hr IVPB BID@0900,2100 [facility]; Protocol Last Admin: 06/11/18 10:46 Dose: 133.333 mls/hr Levothyroxine Sodium (Synthroid -) 25 mcg PO DAILY@0700 [facility] Last Admin: 06/11/18 06:41 Dose: 25 mcg Non-Formulary Medication (Umeclidinium [place] [Incruse Ellipta]) 62.5 mcg IH DAILY [facility] Last Admin: 06/11/18 09:12 Dose: 62.5 mcg Non-Formulary Medication (Zileuton [Zyflo Cr]) 1,200 mg PO BID [facility] Last Admin: 06/11/18 09:12 Dose: 1,200 mg Qvar 80 Mcg Inhaler (- Patient Own Med) 2 each IH BID [facility] Last Admin: 06/11/18 09:12 Dose: 2 each Potassium Chloride (K-Dur -) 20 meq PO DAILY [facility] Last Admin: 06/11/18 09:34 Dose: 20 meq Prednisone (Deltasone -) 10 mg PO DAILY [facility] Last Admin: 06/11/18 09:34 Dose: 10 mg Ranitidine HCl (Zantac -) 150 mg PO HS [facility] Last Admin: 06/10/18 21:04 Dose: 150 mg - Objective Vital Signs: Vital Signs Temperature 98.0 F 06/11/18 09:15 Pulse Rate 83 06/11/18 09:15 Respiratory Rate 20 06/11/18 09:15 Blood Pressure 125/42 06/11/18 09:15 O2 Sat by Pulse Oximetry (%) 97 06/11/18 09:00 Constitutional: Yes: No Distress, Calm Eyes: Yes: Conjunctiva Clear HENT: Yes: Atraumatic Neck: Yes: Supple Cardiovascular: Yes: Regular Rate and Rhythm Respiratory: Yes: CTA Bilaterally Gastrointestinal: Yes: Soft. No: Distention Genitourinary: No: CVA Tenderness - Left, CVA Tenderness - Right Musculoskeletal: No: Joint Stiffness, Joint Swelling Extremities: No: Cold, Cool, Cyanosis Edema: No Integumentary: Yes: Rash (RLE less) Neurological: Yes: WNL, Alert, Oriented ...Motor Strength: WNL Psychiatric: Yes: WNL, Alert, Oriented. No: Agitated, Suicidal Ideation Labs: CBC, BMP 06/11/18 07:00 06/11/18 07:00 INR, PTT INR 1.27 (0.83-1.09) H 06/06/18 08:18 - ....Imaging Other: Report Reviewed Assessment/Plan Christa Perez is a 62yo woman with a PMH of asthma, atypical COPD, psoriasis, and recently treated for RLE cellulitis who presents with malaise, fevers to 101 at home, headache, SAGASTUME, and recurrence of her RLE cellulitis. h/o difficult to control psoriasis antibiotics per ID, DC planning ID and dermatology f/u psoriasis specialist eval outpt; stop otezla for now given recurent leg cellulitis, stat low dose prednisone 10 mg/day po d/w derm dr Cha will need GI f/u for high LFTs (stable now) US c/w fatty liver d/w pt LF diet weight loss f/u US outpt DVT pfx, falls PFX d/w pt and staff
--- NOTE | 2018-06-11 16:32 | PN ---
Progress Note, Physician History of Present Illness: Awake, alert Seated in bed No c/o R LE pain No c/o fever/ chills Tolerating Vancomycin/ Aztreonam Temps down- afebrile - Current Medication List Current Medications: Active Medications Acetaminophen (Tylenol -) 650 mg PO Q6H PRN PRN Reason: FEVER/PAIN LEVEL 1-5 Last Admin: 06/08/18 17:39 Dose: 650 mg Al Hydroxide/Mg Hydroxide (Mylanta Oral Suspension -) 20 ml PO Q6H PRN PRN Reason: INDIGESTION Last Admin: 06/10/18 17:00 Dose: 20 ml Aspirin (Ecotrin -) 81 mg PO DAILY [facility] Last Admin: 06/11/18 09:34 Dose: 81 mg Atorvastatin Calcium (Lipitor -) 20 mg PO HS [facility] Last Admin: 06/10/18 21:04 Dose: 20 mg HCTZ/Losartan Potassium (Hyzaar -) 2 tab PO DAILY [facility] Last Admin: 06/11/18 09:34 Dose: 2 tab Heparin Sodium (Porcine) (Heparin -) 5,000 unit SQ BID [facility] Last Admin: 06/11/18 09:34 Dose: 5,000 unit Hydrocortisone (Hytone 1% Cream -) 1 applic TP BID [facility] Last Admin: 06/11/18 09:12 Dose: 1 applic Aztreonam 1 gm/ Dextrose 50 mls @ 100 mls/hr IVPB Q8H-IV [facility]; Protocol Last Admin: 06/11/18 09:35 Dose: 100 mls/hr Vancomycin HCl (Vancomycin 1 Gm Premix -) 1 gm in 200 mls @ 133.333 mls/hr IVPB BID@0900,2100 [facility]; Protocol Last Admin: 06/11/18 10:46 Dose: 133.333 mls/hr Levothyroxine Sodium (Synthroid -) 25 mcg PO DAILY@0700 [facility] Last Admin: 06/11/18 06:41 Dose: 25 mcg Non-Formulary Medication (Umeclidinium [place] [Incruse Ellipta]) 62.5 mcg IH DAILY [facility] Last Admin: 06/11/18 09:12 Dose: 62.5 mcg Non-Formulary Medication (Zileuton [Zyflo Cr]) 1,200 mg PO BID [facility] Last Admin: 06/11/18 09:12 Dose: 1,200 mg Qvar 80 Mcg Inhaler (- Patient Own Med) 2 each IH BID [facility] Last Admin: 06/11/18 09:12 Dose: 2 each Potassium Chloride (K-Dur -) 20 meq PO DAILY [facility] Last Admin: 06/11/18 09:34 Dose: 20 meq Prednisone (Deltasone -) 10 mg PO DAILY [facility] Last Admin: 06/11/18 09:34 Dose: 10 mg Ranitidine HCl (Zantac -) 150 mg PO HS [facility] Last Admin: 06/10/18 21:04 Dose: 150 mg - Objective Vital Signs: Vital Signs Temperature 97.7 F 06/11/18 14:00 Pulse Rate 84 06/11/18 14:00 Respiratory Rate 21 06/11/18 14:00 Blood Pressure 138/59 06/11/18 14:00 O2 Sat by Pulse Oximetry (%) 97 06/11/18 09:00 Constitutional: Yes: No Distress Eyes: Yes: Conjunctiva Clear Cardiovascular: Yes: Regular Rate and Rhythm, S1 Gastrointestinal: Yes: Normal Bowel Sounds, Soft. No: Tenderness Extremities: Yes: Other (decreased erythema R LE Lymphangitis resolved) Labs: CBC, BMP 06/11/18 07:00 06/11/18 07:00 INR, PTT INR 1.27 (0.83-1.09) H 06/06/18 08:18 Assessment/Plan Cellulitis/ lymphangitis R LE Fever/ leukocytosis Hx psoriasis on otezla PCN allergy Continue empiric vancomycin/ aztreonam
[2018-06-11] MEDS: MAG HYDROX/AL HYDROX/SIMETH 30 ML UNIT-DOSE CUP PO PRN (20:17)
[2018-06-11] MEDS: ATORVASTATIN CA 20 MG TABLET (FP) PO SCH (21:02)
[2018-06-11] MEDS: RANITIDINE HCL 150 MG TABLET (FP) PO SCH (21:02)
[2018-06-12 00:08] LABS: HEP B CORE AB, IGM Negative (Negative); HEP B CORE AB, TOT Negative (Negative); TRANSGLUTAMINASE IGA < 2 U/mL (0-3); TRANSGLUTAMINASE IGG < 2 U/mL (0-5)
[2018-06-12] MEDS: AZTREONAM 1 GM in DEXTROSE 5%-WATER - 50 ML IVPB SCH ×2 (01:32→11:02)
[2018-06-12] MEDS: LEVOTHYROXINE NA 25 MCG TABLET (FP) PO SCH (06:32)
[2018-06-12] MEDS ORDERED: PT OWN MED DRAWER 7, Y5N ONE ×2 (06:54→09:34)
[2018-06-12 07:08] VITALS: TEMP 97.7
[2018-06-12] MEDS: LOSARTAN 50MG/HCTZ 12.5MG 1 TAB (FP) PO SCH (09:46)
[2018-06-12] MEDS: VANCOMYCIN 1 GM PREMIX - 1 GM/200 ML BAG IVPB SCH (09:46)
[2018-06-12] MEDS: ASPIRIN COATED 81 MG TABLET.EC PO SCH (09:46)
[2018-06-12] MEDS: POTASSIUM CHLORIDE TABS 10 MEQ TABLET.ER (FP) PO SCH (09:46)
[2018-06-12] MEDS: predniSONE 10 MG TABLET (UD) PO SCH (09:46)
[2018-06-12] MEDS: HEPARIN NA (PORCINE) 5,000 UNITS/ML 1ML VIAL SQ SCH (09:47)
[2018-06-12] MEDS: PATIENT'S OWN MEDICATION (NON-FORMULARY) (Umeclidinium Bromide [Incruse Ellipta] 62.5 MCG) IH SCH (09:48)
[2018-06-12] MEDS: QVAR 80 MCG IH SCH (09:48)
[2018-06-12] MEDS: ZILEUTON PO SCH (09:48)
[2018-06-12] MEDS: HYDROCORTISONE 1% TOPICAL CREAM 30 GM TUBE TP SCH (09:49)
--- NOTE | 2018-06-12 09:56 | PN ---
Progress Note, Physician - Current Medication List Current Medications: Active Medications Acetaminophen (Tylenol -) 650 mg PO Q6H PRN PRN Reason: FEVER/PAIN LEVEL 1-5 Last Admin: 06/08/18 17:39 Dose: 650 mg Al Hydroxide/Mg Hydroxide (Mylanta Oral Suspension -) 20 ml PO Q6H PRN PRN Reason: INDIGESTION Last Admin: 06/11/18 20:17 Dose: 20 ml Aspirin (Ecotrin -) 81 mg PO DAILY [facility] Last Admin: 06/12/18 09:46 Dose: 81 mg Atorvastatin Calcium (Lipitor -) 20 mg PO HS [facility] Last Admin: 06/11/18 21:02 Dose: 20 mg HCTZ/Losartan Potassium (Hyzaar -) 2 tab PO DAILY [facility] Last Admin: 06/12/18 09:46 Dose: 2 tab Heparin Sodium (Porcine) (Heparin -) 5,000 unit SQ BID [facility] Last Admin: 06/12/18 09:47 Dose: 5,000 unit Hydrocortisone (Hytone 1% Cream -) 1 applic TP BID [facility] Last Admin: 06/12/18 09:49 Dose: 1 applic Aztreonam 1 gm/ Dextrose 50 mls @ 100 mls/hr IVPB Q8H-IV [facility]; Protocol Last Admin: 06/12/18 01:32 Dose: 100 mls/hr Vancomycin HCl (Vancomycin 1 Gm Premix -) 1 gm in 200 mls @ 133.333 mls/hr IVPB BID@0900,2100 [facility]; Protocol Last Admin: 06/12/18 09:46 Dose: 133.333 mls/hr Levothyroxine Sodium (Synthroid -) 25 mcg PO DAILY@0700 [facility] Last Admin: 06/12/18 06:32 Dose: 25 mcg Non-Formulary Medication (Umeclidinium [place] [Incruse Ellipta]) 62.5 mcg IH DAILY [facility] Last Admin: 06/12/18 09:48 Dose: 62.5 mcg Non-Formulary Medication (Zileuton [Zyflo Cr]) 1,200 mg PO BID [facility] Last Admin: 06/12/18 09:48 Dose: 1,200 mg Qvar 80 Mcg Inhaler (- Patient Own Med) 2 each IH BID [facility] Last Admin: 06/12/18 09:48 Dose: 2 each Potassium Chloride (K-Dur -) 20 meq PO DAILY [facility] Last Admin: 06/12/18 09:46 Dose: 20 meq Prednisone (Deltasone -) 10 mg PO DAILY [facility] Last Admin: 06/12/18 09:46 Dose: 10 mg Ranitidine HCl (Zantac -) 150 mg PO HS [facility] Last Admin: 06/11/18 21:02 Dose: 150 mg - Objective Vital Signs: Vital Signs Temperature 97.7 F 06/12/18 06:00 Pulse Rate 77 06/12/18 06:00 Respiratory Rate 18 06/12/18 06:00 Blood Pressure 131/71 06/12/18 06:00 O2 Sat by Pulse Oximetry (%) 97 06/11/18 21:00 Labs: CBC, BMP 06/11/18 07:00 06/11/18 07:00 INR, PTT INR 1.27 (0.83-1.09) H 06/06/18 08:18
--- NOTE | 2018-06-12 10:34 | DS ---
Physical Examination Vital Signs: Vital Signs Temperature 97.7 F 06/12/18 06:00 Pulse Rate 77 06/12/18 06:00 Respiratory Rate 18 06/12/18 06:00 Blood Pressure 131/71 06/12/18 06:00 O2 Sat by Pulse Oximetry (%) 97 06/11/18 21:00 Findings/Remarks: feels better ready to go home no c/o no leg pain no N/V/ abdominal pain ate OK, no C/D d/w ID dr Chou DC home on po bactrim DS bid 1 week (doxycycline initially suggested by ID but cancelled b/o previous failure to doxy, d/w pt) good po hydration, po bacid instructions meds and f/u dw pt T time 40 min scripts done Constitutional: Yes: No Distress, Calm Eyes: Yes: Conjunctiva Clear HENT: Yes: Atraumatic Neck: Yes: Supple Cardiovascular: Yes: Regular Rate and Rhythm Respiratory: Yes: CTA Bilaterally Gastrointestinal: Yes: Soft Renal/: No: CVA Tenderness - Left, CVA Tenderness - Right Musculoskeletal: No: Joint Stiffness, Joint Swelling Extremities: No: Cold, Cool, Cyanosis Edema: No Integumentary: No: Rash, Venous Stasis Changes Neurological: Yes: WNL, Alert, Oriented ...Motor Strength: WNL Psychiatric: Yes: WNL, Alert, Oriented. No: Agitated, Suicidal Ideation Labs: CBC, BMP 06/11/18 07:00 06/11/18 07:00 Discharge Summary Reason For Visit: CELLULITIS; SEPSIS Current Active Problems Abnormal liver function tests (Acute) Asthma (Acute) Cellulitis (Acute) Diverticulosis (Acute) Fatty (change of) liver, not elsewhere classified (Acute) GERD (gastroesophageal reflux disease) (Acute) Hypothyroidism (Acute) Psoriasis (Acute) Sepsis (Acute) Procedures: Principal: admitted with recurrent RLE cellulitis, h/o psoriasis on otezla Other Procedures: IV ATB per ID, seen by dermatology;. high LFTs liver US c/w fatty liver; seen by GI Hospital Course: improved with above; stop otezla; f/u as advised take meds as prescribed Condition: Fair - Instructions Diet, Activity, Other Instructions: f/u PCP and dermatology in 1-2 weeks GI f/u in 2-4 weeks CBC CMP labs in 1 week outpt stop otezla; stay on low dose prednisone until seen by derm psoriasis specialist RTER if worse or recurrent c/o take antibiotics as prescribed; good po hydration and po probiotics Referrals: Flora Dove [Primary Care Provider] - Viviana Cha MD [Staff Physician] - Irma Cheng MD [Staff Physician] - Disposition: HOME - Home Medications Comprehensive Discharge Medication List: Ambulatory Orders Aspirin [ASA -] 81 mg PO HS 06/06/18 Atorvastatin Calcium 20 mg PO DAILY 06/06/18 Beclomethasone Dipropionate [Qvar Redihaler] 2 inh IH BID 06/06/18 Levothyroxine [Synthroid -] 25 mcg PO DAILY 06/06/18 Losartan/Hydrochlorothiazide [Losartan-Hctz 100-25 mg Tab] 1 each PO DAILY 06/06 Umeclidinium [place] [Incruse Ellipta] 62.5 mcg IH BID 06/06/18 Umeclidinium [place] [Incruse Ellipta] 62.5 mcg IH DAILY 06/06/18 Zileuton [Zyflo Cr] 600 mg PO BID 06/06/18 Acetaminophen [Tylenol .Regular Strength -] 650 mg PO Q6H PRN tablet 06/11/18 Hydrocortisone 1% Cream [Hytone 1% Cream -] 1 applic TP BID tube 06/11/18 Mag Hydrox/Al Hydrox/Simeth [Mylanta Oral Suspension -] 20 ml PO Q6H PRN cup Potassium Chloride [K-Dur -] 20 meq PO DAILY #30 tablet.er 06/11/18 Ranitidine [Zantac -] 150 mg PO HS tablet 06/11/18 predniSONE [Deltasone -] 10 mg PO DAILY #30 tablet 06/11/18 Sulfamethoxazole/Trimethoprim [Bactrim Ds -] 1 tab PO BID #14 tablet 06/12/18
[2018-06-12] MEDS ORDERED: SULFAMETHOXAZOLE/TRIMETHOPRIM 800MG/160MG D.S. TABLET PO SCH (11:30)
[2018-06-12 11:31] VITALS: BP 160/92; PULSE 89
== END 2018-06-12 12:21 | disposition home or self-care (01) | DRG 872 ==
LOC: JER 07:44 → JERBED 10:06 → J8W 15:55
PROVIDERS: ADMIT Internal Medicine; ATTEND Internal Medicine
DX: A41.9 Sepsis, unspecified organism (principal); L03.115 Cellulitis of right lower limb; G40.89 Other seizures; Z68.41 Body mass index [BMI] 40.0-44.9, adult; Z88.0 Allergy status to penicillin; J44.9 Chronic obstructive pulmonary disease, unspecified; L40.9 Psoriasis, unspecified; I10 Essential (primary) hypertension; E07.9 Disorder of thyroid, unspecified; E66.9 Obesity, unspecified; E03.9 Hypothyroidism, unspecified; K76.0 Fatty (change of) liver, not elsewhere classified; K21.9 Gastro-esophageal reflux disease without esophagitis; K57.30 Diverticulosis of large intestine without perforation or abscess without bleeding
CPT/HCPCS: 36415; 71045-TC-FY; 76705-TC; 76775-TC; 76856-TC; 80048; 80053; 80076; 81003; 82150; 82172; 82247; 82465; 82728; 82803; 82947; 82977; 83010; 83516; 83540; 83605; 83690; 83735; 83880; 83883; 84100; 84450; 84460; 84478; 84484; 85025; 85610; 85651; 85730; 86038; 86704; 86705; 86706; 86707; 86803; 87040; 87086; 93005; 93010; 93306-TC; 93971-TC; 99284-25; G0480; J1644; J7030

== ENCOUNTER 2018-11-15 17:28 | Inpatient (IN) | payer OTHER ==
--- NOTE | 2018-11-15 18:46 | PDOC ---
History of Present Illness - General Chief Complaint: Redness To Affected Area Stated Complaint: CELLULITIS Time Seen by Provider: 11/15/18 17:48 History Source: Patient, Old Records Exam Limitations: No Limitations - History of Present Illness Initial Comments: HPI: 63 y/o female presenting to [facility] ER complaining of swelling and redness to right lower extremity. First noted subjective fever and chills yesterday. Right ankle felt full this morning. Redness to ankle and calf started at approx. 16: 00 this afternoon. Denies weeping or purulent discharge. No trauma to the area. Denies lymphatic streaking or swelling in groin. Pt has a history of cellulitis to area believed to be secondary to psoriasis or eczema. Last admitted to this facility for cellulitis to the area in June 2018. Last outpatient antibiotic therapy was Bactrim completed in Jul 2018. PCP: Dr. Dove Medical Hx: - Asthma/ COPD - Psoriasis - Eczema - Recurrent cellulitis to right lower extremity Past History - Past Medical History Allergies/Adverse Reactions: Allergies Allergy/AdvReac Type Severity Reaction Status Date / Time Penicillins Allergy Verified 11/15/18 17:41 Home Medications: Ambulatory Orders Aspirin [ASA -] 81 mg PO HS 06/06/18 Atorvastatin Calcium 20 mg PO DAILY 06/06/18 Beclomethasone Dipropionate [Qvar Redihaler] 2 inh IH BID 06/06/18 Levothyroxine [Synthroid -] 25 mcg PO DAILY 06/06/18 Losartan/Hydrochlorothiazide [Losartan-Hctz 100-25 mg Tab] 1 each PO DAILY 06/06 Umeclidinium [place] [Incruse Ellipta] 62.5 mcg IH BID 06/06/18 Umeclidinium [place] [Incruse Ellipta] 62.5 mcg IH DAILY 06/06/18 Zileuton [Zyflo Cr] 600 mg PO BID 06/06/18 Acetaminophen [Tylenol .Regular Strength -] 650 mg PO Q6H PRN tablet 06/11/18 Hydrocortisone 1% Cream [Hytone 1% Cream -] 1 applic TP BID tube 06/11/18 Mag Hydrox/Al Hydrox/Simeth [Mylanta Oral Suspension -] 20 ml PO Q6H PRN cup Potassium Chloride [K-Dur -] 20 meq PO DAILY #30 tablet.er 06/11/18 Ranitidine [Zantac -] 150 mg PO HS tablet 06/11/18 predniSONE [Deltasone -] 10 mg PO DAILY #30 tablet 06/11/18 Sulfamethoxazole/Trimethoprim [Bactrim Ds -] 1 tab PO BID #14 tablet 06/12/18 Anemia: No Asthma: Yes Cancer: No Cardiac Disorders: No CVA: No COPD: Yes ("atypical copd") CHF: No Dementia: No Diabetes: No GI Disorders: Yes (ibs) Disorders: Yes (stress inc) HTN: Yes Hypercholesterolemia: Yes Liver Disease: Yes (fatty liver) Seizures: No Thyroid Disease: Yes (hypothyriodism s/p partial thryiodectomy) - Surgical History Abdominal Surgery: No Appendectomy: Yes Cardiac Surgery: No Cholecystectomy: No Lung Surgery: No Neurologic Surgery: No Orthopedic Surgery: No - Immunization History Immunization Up to Date: Yes - Suicide/Smoking/Psychosocial Hx Smoking History: Never smoked Have you smoked in the past 12 months: No Hx Alcohol Use: No Drug/Substance Use Hx: No Substance Use Type: None Hx Substance Use Treatment: No Review of Systems - Review of Systems Able to Perform ROS?: Yes Comments:: In addition to that documented in the HPI above, the additional ROS was obtained : Constitutional: Endorses subjective fevers and chills ENMT: Denies sore throat Hearing: Denies change in hearing CV: Denies chest pain Resp: Denies SOB or periods of breathlessness GI: Denies vomiting or diarrhea : Denies painful urination MSK: Denies recent trauma Skin: Per HPI Neuro: Denies new numbness or tingling or weakness Endocrine: Denies polyuria Heme: Denies recent travel, long periods of immobilization, cancer diagnosis, h/ o of blood clots or bleeding disorders. *Physical Exam - Vital Signs Last Vital Signs Temp Pulse Resp BP Pulse Ox 98.4 F 105 H 20 155/72 97 11/15/18 17:39 11/15/18 17:39 11/15/18 17:39 11/15/18 17:39 11/15/18 17:39 - Physical Exam Comments: Constitutional: Well-developed, well-nourished, nontoxic obese female in no acute distress or obvious discomfort. Found semi-fowlers on hospital bed. Alert and oriented x4. Answered all questions appropriately and completely. Speech was non-labored, non-pressured. Head: Normocephalic. No obvious external signs of trauma. Eyes: Sclerae white. EARS: Hearing grossly intact. NOSE: No nasal discharge. Neck: Supple, trachea is midline. Cardiovascular: Regular rate and regular rhythm. No murmur, rubs, clicks, or gallops. Peripheral pulses: Radial pulses full. Respiratory: Breathing unlabored. Equal chest rise and fall. Clear to auscultation bilaterally. No stridor, no wheezing, no rhonchi. Neuro: Alert and oriented. Moving all four extremities spontaneously. Skin: Right lower leg is swollen compared to left. Area is warm and erythematous without weeping or purulent discharge. Extends circumferentially up 3/4ths of pascual. No bleeding or open wounds. No obvious subcutaneous emphysema. Small circular patch of scar tissue to lateral aspect. No trauma between toes. Dry, flaking skin to bottom of foot. Globally, skin is warm and dry. Psych: Affect: appropriate. Mood: normal. Moderate Sedation - Procedure Monitoring Vital Signs: Procedure Monitoring Vital Signs Temperature 98.4 F 11/15/18 17:39 Pulse Rate 105 H 11/15/18 17:39 Respiratory Rate 20 11/15/18 17:39 Blood Pressure 155/72 11/15/18 17:39 O2 Sat by Pulse Oximetry (%) 97 11/15/18 17:39 ED Treatment Course - LABORATORY CBC & Chemistry Diagram: 11/15/18 20:00 11/15/18 20:40 Medical Decision Making - Medical Decision Making *Reviewed vital signs, nursing notes, and prior visit documentation (if available). Case discussed with ED Attending Dr. Flower. 63 y/o female presenting with likely cellulitic lesions to right lower extremity. Reportedly rapidly progressing. H/o of recurrent cellulitis to the area. Afebrile. Vitals unremarkable for hypotension or tachycardia. Physical exam as described above. Suspect cellulitis, less likely secondary to MRSA without purulence or honey crusting. Necrotising fasciitis is a possibility given reported rapid progression. Extremity marked. Will Low suspicion for DVT. Pt reports multiple works all negative. Ordered CBC, CMP, ESR, CRP, and plain film of the extremity. Will empirically start vancomycin and clindamycin. 20:29 Lab reports CMP and CRP hemolyzed. Reordered. CBC revealed mild leukocytosis with elevated ANC. ESR and CRP elevated. Plain films of the extremity did not revealed subcutaneous gas or obvious bony lytic lesions. Pt reassessed. Erythema had not progressed beyond marked level at initial interview. Low suspicion for necrotising fasciitis. Continue to suspect cellulitis without lymphatic involvement. Will admit pt for IV antibiotics given recurrence of symptoms and history of hospitalization for similar. 22:32 Telephone page sent for Dr. Dove through answering service. Awaiting call back. 22:[address] Flora Dove. Verbally appraised of the pts HPI, ED course, and current plan of management. Agrees to admit pt to med/surg on inpatient status. Requests venous duplex u/s of extremity. *DC/Admit/Observation/Transfer Diagnosis at time of Disposition: Elevated erythrocyte sedimentation rate, Elevated C-reactive protein (CRP) Cellulitis Qualifiers: Site of cellulitis: extremity Site of cellulitis of extremity: lower extremity Laterality: right Qualified Code(s): L03.115 - Cellulitis of right lower limb - Discharge Dispostion Condition at time of disposition: Stable Decision to Admit order: Yes - Referrals - Patient Instructions - Post Discharge Activity
--- NOTE | 2018-11-15 18:47 | PDOC ---
Attending Attestation - HPI HPI: 11/15/18 18:57 The patient is a 63 year old female with a past medical history of asthma, atypical COPD, psoriasis, eczema, and right lower extremity cellulitis here today for evaluation of right leg redness. The patient reports she woke up this morning with a a feeling right lower extremity fullness and began to develop redness around 4 pm. She notes that she had fever and chills since yesterday. She also reports using steroid cream which usually helps with her eczema. Patient denies headache, lightheadedness. Denies chest pain, shortness of breath. Denies nausea, vomiting, diarrhea, abdominal pain. Allergies: Penicillins PCP: Flora Dove - Physicial Exam PE: 11/15/18 19:21 GENERAL: Well developed, well nourished. Awake and alert. No acute distress. HEENT: Normocephalic, atraumatic. PERRLA, EOMI. No conjunctival pallor. Sclera are non- icteric. Moist mucous membranes. Oropharynx is clear. NECK: Supple. Full ROM. No JVD. Carotid pulses 2+ and symmetric, without bruits. No thyromegaly. No lymphadenopathy. CARDIOVASCULAR: Regular rate and rhythm. No murmurs, rubs, or gallops. Distal pulses are 2+ and symmetric. PULMONARY: No evidence of respiratory distress. Lungs clear to auscultation bilaterally. No wheezing, rales or rhonchi. ABDOMINAL: Soft. Non-tender. Non-distended. No rebound or guarding. No organomegaly. Normoactive bowel sounds. MUSCULOSKELETAL Normal range of motion at all joints. No bony deformities or tenderness. No CVA tenderness. EXTREMITIES: +right lower extremity edema and warmth from just above the knee down the leg. + eczema on bilateral soles of feet. No cyanosis. No clubbing. No calf tenderness. SKIN: Warm and dry. Normal capillary refill. No rashes. No jaundice. NEUROLOGICAL: Alert, awake, appropriate. Cranial nerves 2-12 intact. No deficits to light touch and temperature in face, upper extremities and lower extremities. No motor deficits in the in face, upper extremities and lower extremities. Normoreflexic in the upper and lower extremities. Normal speech. Toes are down- going bilaterally. Gait is normal without ataxia. PSYCHIATRIC: Cooperative. Good eye contact. Appropriate mood and affect. - Medical Decision Making 11/15/18 18:57 Documentation prepared by NAMITA Mcdermott, acting as medical director/head team physician for Paris Flower MD. <Pepe Delaney - Last Filed: 11/15/18 19:20> - Resident Resident Name: Jayden Hunt - ED Attending Attestation I have performed the following: I have examined & evaluated the patient, The case was reviewed & discussed with the resident, I agree w/resident's findings & plan, Exceptions are as noted - Medical Decision Making 11/15/18 20:00 this pt has had a six year history of psoriasis/eczema on her soles and palms and has had recurrent RLE cellulitis she has dev a rapidly increasing erythema on her RLE extending to her knee. The area is warm and tender ROS ++chills but no fever 11/15/18 20:20 imp RLE cellulitis, admit for IV ABX <Paris Flower - Last Filed: 11/15/18 20:21>
[2018-11-15] MEDS ORDERED: VANCOMYCIN 1,500 MG in DEXTROSE 5%-WATER - 500 ML IVPB ONE (18:58)
[2018-11-15] MEDS ORDERED: CLINDAMYCIN 600MG PREMIX IVPB 600 MG/50 ML BAG IVPB ONE ×2 (18:58→19:54)
[2018-11-15 20:12] LABS: BASO % 0.8 % (0-2.0); EOS % 0.7 % (0-4.5); HEMATOCRIT 36.9 % (32.4-45.2); HEMOGLOBIN 12.8 GM/dL (10.7-15.3); LYMPH % 10.7 % (8-40); MCH 29.4 pg (25.7-33.7); MCHC 34.6 g/dl (32.0-36.0); MEAN PLT VOLUME 8.4 fl (7.5-11.1); MONO % 5.9 % (3.8-10.2); NEUT % 81.9 % (42.8-82.8); PLATELET COUNT 269 K/MM3 (134-434); RBC 4.34 M/mm3 (3.60-5.2); RDW 14.3 % (11.6-15.6); WHITE BLOOD COUNT 13.8 K/mm3 (4.0-10.0)
[2018-11-15 21:35] LABS: ALBUMIN 3.2 g/dl (3.4-5.0); ALK PHOS 162 U/L (45-117); ANION GAP 8 MMOL/L (8-16); BILIRUBIN,TOTAL 0.5 mg/dL (0.2-1); BLOOD UREA NITROGEN 13 mg/dL (7-18); CHLORIDE 106 mmol/L (98-107); CO2 25 mmol/L (21-32); GLUCOSE,RANDOM 116 mg/dL (74-106); POTASSIUM 3.7 mmol/L (3.5-5.1); SGOT/AST 63 U/L (15-37); SGPT/ALT 81 U/L (13-61); SODIUM 140 mmol/L (136-145); TOT PROT 6.4 g/dl (6.4-8.2)
[2018-11-15 21:59] LABS: ERYTHROCYTE SEDIMENTATION RATE 38 mm/hr (0-30)
[2018-11-16 05:11] VITALS: BMI 42.5
[2018-11-16] MEDS ORDERED: MAG HYDROX/AL HYDROX/SIMETH 30 ML UNIT-DOSE CUP PO PRN (06:31)
[2018-11-16] MEDS ORDERED: ACETAMINOPHEN 325 MG TABLET (FP) PO PRN (06:31)
--- NOTE | 2018-11-16 06:31 | HP ---
Admitting History and Physical - Primary Care Physician PCP: Flora Dove S - Admission Chief Complaint: RLE rash and pain History of Present Illness: The patient is a 63 year old female with a past medical history of asthma, atypical COPD, psoriasis, eczema, and h/o recurrent right lower extremity cellulitis came in for evaluation of right leg redness pain and swelling for 2 days. The patient reports she woke up yesterday with a a feeling right lower extremity fullness and began to develop redness around 4 pm. She notes that she had fever and chills since yesterday. She also reports using steroid cream which usually helps with her eczema. History Source: Patient Limitations to Obtaining History: No Limitations - Past Medical History Cardiovascular: Yes: HTN Pulmonary: Yes: Asthma, COPD Gastrointestinal: Yes: Diverticulosis, GERD, Irritable Bowel Disease Hepatobiliary: Yes: Other (fatty liver) ...: No Infectious Disease: Yes: Other (RLE cellulitis) Musculoskeletal: Yes: Chronic low back pain, Osteoarthritis Endocrine: Yes: Hypothyroidism (following hemithyroidectomy for benign nodule) Dermatology: Yes: Psoriasis - Past Surgical History Past Surgical History: Yes: Appendectomy, Colonoscopy, Upper Endoscopy - Smoking History Smoking history: Never smoked Have you smoked in the past 12 months: No - Alcohol/Substance Use Hx Alcohol Use: No - Social History Usual Living Arrangement: Yes: With Spouse ADL: Independent 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 History of Recent Travel: No Home Medications - Allergies Allergies/Adverse Reactions: Allergies Allergy/AdvReac Type Severity Reaction Status Date / Time Penicillins Allergy Verified 11/15/18 17:41 - Home Medications Home Medications: Ambulatory Orders Aspirin [ASA -] 81 mg PO HS 06/06/18 Atorvastatin Calcium 20 mg PO DAILY 06/06/18 Beclomethasone Dipropionate [Qvar Redihaler] 2 inh IH BID 06/06/18 Levothyroxine [Synthroid -] 25 mcg PO DAILY 06/06/18 Losartan/Hydrochlorothiazide [Losartan-Hctz 100-25 mg Tab] 1 each PO DAILY 06/06 Umeclidinium [place] [Incruse Ellipta] 62.5 mcg IH BID 06/06/18 Umeclidinium [place] [Incruse Ellipta] 62.5 mcg IH DAILY 06/06/18 Zileuton [Zyflo Cr] 600 mg PO BID 06/06/18 Acetaminophen [Tylenol .Regular Strength -] 650 mg PO Q6H PRN tablet 06/11/18 Hydrocortisone 1% Cream [Hytone 1% Cream -] 1 applic TP BID tube 06/11/18 Mag Hydrox/Al Hydrox/Simeth [Mylanta Oral Suspension -] 20 ml PO Q6H PRN cup Potassium Chloride [K-Dur -] 20 meq PO DAILY #30 tablet.er 06/11/18 Ranitidine [Zantac -] 150 mg PO HS tablet 06/11/18 predniSONE [Deltasone -] 10 mg PO DAILY #30 tablet 06/11/18 Sulfamethoxazole/Trimethoprim [Bactrim Ds -] 1 tab PO BID #14 tablet 06/12/18 Family Disease History - Family Disease History Family Disease History: Heart Disease: Father ( 60 CHF, COPD), CA: Mother ( 40s of laryngeal cancer), Respiratory: Father, Other: Brother (alcoholism) Review of Systems - Review of Systems Constitutional: denies: Chills, Fever Eyes: denies: Blind Spots, Blurred Vision HENT: denies: Ear Pain, Epistaxis Neck: denies: Stiffness, Tenderness Cardiovascular: denies: Chest Pain, Edema, Palpitations, Shortness of Breath Respiratory: denies: Cough, SOB Gastrointestinal: denies: Abdominal Pain, Constipation, Vomiting Genitourinary: denies: Dysuria, Flank Pain Musculoskeletal: denies: Back Pain, Crepitus, Muscle Pain Integumentary: reports: Eczema (RLE), Rash (RLE below knee). denies: Wound Neurological: denies: Confusion, Dizziness, Headache, Syncope Endocrine: denies: Excessive Sweating, Intolerance to Cold, Unexplained Weight Gain, Unexplained Weight Loss Hematology/Lymphatic: denies: Easily Bruised, Excessive Bleeding Psychiatric: denies: Altered Sleep Pattern, Anxiety, Depression, Suicidal Physical Examination Vital Signs: Vital Signs Temperature 98 F 11/16/18 05:15 Pulse Rate 97 H 11/16/18 05:15 Respiratory Rate 22 H 11/16/18 05:15 Blood Pressure 147/81 11/16/18 05:15 O2 Sat by Pulse Oximetry (%) 97 11/16/18 02:15 Constitutional: Yes: No Distress, Calm Eyes: Yes: Conjunctiva Clear HENT: Yes: Atraumatic Neck: Yes: Supple Cardiovascular: Yes: Regular Rate and Rhythm Respiratory: Yes: CTA Bilaterally Gastrointestinal: Yes: Soft Renal/: No: CVA Tenderness - Left, CVA Tenderness - Right Musculoskeletal: No: Joint Stiffness, Joint Swelling Extremities: Yes: Erythema. No: Cold, Cool, Cyanosis Edema: Yes (RLE 1+ ) Integumentary: Yes: Rash (RLE) Neurological: Yes: WNL, Alert, Oriented ...Motor Strength: WNL Psychiatric: Yes: WNL, Alert, Oriented. No: Agitated, Suicidal Ideation Labs: CBC, BMP 11/15/18 20:00 11/15/18 20:40 Imaging - Results Chest X-ray: Report Reviewed X-ray: Report Reviewed Ultrasound: Report Reviewed Other: Report Reviewed Assessment/Plan The patient is a 63 year old female with a past medical history of asthma, atypical COPD, psoriasis, eczema, and h/o previous recurrent right lower extremity cellulitis now with acute recurrent RLE cellulitis IV ATB ID and vascular sx eval; derm eval blood cx DVT pfx will need close derm f/u after DC from Hospital
--- NOTE | 2018-11-16 08:55 | PN ---
Progress Note (short form) - Note Progress Note: ID consult dictated Called Stat by nurse to evaluate her leg 63 yo female lives at home, hospitalized in June for RLE cellulitis-treated with vancomycin and azactam, she was discharged on bactrim and erythema eventually resolved on po bactrim On Friday night she had chills for 4 hours but no fevers Friday at 3 pm the RLE became red and she came to ED given vancomycin and clindamycin in ED this am noted to have erythema about 1/2 inch above the ER markings no fever started on vancomycin and clindamycin in ED has known eczema of her hands and feet some swelling of the RLE at baseline pen allergy- joint swellin recurrent cellulitis of the RLE penicillin allergy eczema hands and feet continue vancomycin add azactam f/u cultures Problem List - Problems (1) Cellulitis Code(s): L03.90 - CELLULITIS, UNSPECIFIED Qualifiers: Site of cellulitis: extremity Site of cellulitis of extremity: lower extremity Laterality: right Qualified Code(s): L03.115 - Cellulitis of right lower limb (2) Eczema Code(s): L30.9 - DERMATITIS, UNSPECIFIED (3) Penicillin allergy Code(s): Z88.0 - ALLERGY STATUS TO PENICILLIN
[2018-11-16] MEDS ORDERED: PT OWN MED DRAWER 7, Y5N ONE ×2 (09:32→22:06)
[2018-11-16] MEDS: LEVOTHYROXINE NA 25 MCG TABLET (FP) PO SCH (09:49)
[2018-11-16] MEDS: AZTREONAM 1 GM in DEXTROSE 5%-WATER - 50 ML IVPB SCH ×2 (09:49→17:23)
[2018-11-16] MEDS: HEPARIN NA (PORCINE) 5,000 UNITS/ML 1ML VIAL SQ SCH ×2 (09:49→22:12)
[2018-11-16] MEDS: POTASSIUM CHLORIDE TABS 20 MEQ TABLET.ER (FP) PO SCH ×2 (09:49→09:57)
[2018-11-16] MEDS: HYDROCORTISONE 1% TOPICAL CREAM 30 GM TUBE TP SCH ×2 (09:49→22:19)
[2018-11-16] MEDS: predniSONE 10 MG TABLET (UD) PO SCH ×2 (09:50→09:57)
--- NOTE | 2018-11-16 09:50 | EKG ---
Test Reason : Blood Pressure : / mmHG Vent. Rate : 096 BPM Atrial Rate : 096 BPM P-R Int : 166 ms QRS Dur : 090 ms QT Int : 378 ms P-R-T Axes : 068 068 042 degrees QTc Int : 477 ms NORMAL SINUS RHYTHM CANNOT RULE OUT ANTERIOR INFARCT , AGE UNDETERMINED ABNORMAL ECG WHEN COMPARED WITH ECG OF 06-JUN-2018 09:35, NO SIGNIFICANT CHANGE WAS FOUND Confirmed by RUTH ANN INGRAM MD ([id number]) on 11/16/2018 9:50:07 AM Referred By: Confirmed By:RUTH ANN INGRAM MD
[2018-11-16] MEDS ORDERED: LOSARTAN 50MG/HCTZ 12.5MG 1 TAB (FP) PO SCH (10:00)
[2018-11-16] MEDS: VANCOMYCIN 1,250 MG in DEXTROSE 5%-WATER - 250 ML IVPB SCH ×2 (10:35→22:11)
--- NOTE | 2018-11-16 10:46 | CONS ---
DATE OF CONSULTATION: DATE OF DICTATION: 11/16/2018 INFECTIOUS DISEASE CONSULTATION REQUESTED BY: Flora Dove MD This is a 63-year-old woman with past medical history of hypertension, eczema. She was hospitalized in June 2018 for cellulitis of her right leg. She reports at that time she had been treated with oral antibiotics several times. The erythema worsened. She had fever. She was admitted. She was treated with vancomycin and Azactam looking through the records and ultimately discharged on Bactrim. She followed up with Dr. Chou in the office. The Bactrim was continued to resolution and was completed orally sometime in July. She has done well since that time and this Friday she had an episode of chills at home for 4 hours. She had no associated fever. She woke up the next morning with no complaints. By 3:00 in the afternoon, she had ascending erythema starting with the right foot extending up to below her knee. She presented to the emergency room. She had no fevers. There was no drainage. In the ER, she had cultures drawn, and the leg was marked, and she had a duplex that was unremarkable, and she was given clindamycin and vancomycin. This morning I received at STAT call from the nurse who was concerned as she thought the erythema had advanced beyond the line. On seeing the patient, she remained afebrile. She is able to walk and bear weight without difficulty on the leg, and she gave the above history. PAST MEDICAL HISTORY: There is no associated fever. She has no nausea, vomiting, diarrhea, dysuria, or cough. Notable for asthma. 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 She was evaluated for psoriasis and told this was atypical eczema of her hands and feet only and this is the second admission for right lower extremity cellulitis. She notes her right lower extremity is always a bit more swollen than the left. She has a history of hypercholesterolemia, hypertension, and osteoarthritis. She reports during the last admission she was told she had abnormal liver function tests and had a workup and was told she had fatty liver. She is hypothyroid. SURGICAL HISTORY: Notable for partial thyroidectomy and appendectomy. She has had sinus surgery as well. SOCIAL HISTORY: She works at [employer]. There is no history of any cigarette use or substance use. REVIEW OF SYSTEMS: She denies history of any MRSA. ALLERGIES: SHE IS ALLERGIC TO PENICILLIN WHICH CAUSES HER JOINTS TO SWELL. MEDICATIONS: As an outpatient include atorvastatin, aspirin, Ellipta inhaler, Zantac, K-Dur, losartan, hydrochlorothiazide, Synthroid, Zyflo, and Qvar inhaler. REVIEW OF SYSTEMS: As per HPI. FAMILY HISTORY: Unremarkable. PHYSICAL EXAMINATION: General: She is awake and alert. Vital Signs: Her weight is 108 pounds, BMI is 42. She has had no fever. Temperature is 98, pulse is 97, blood pressure is 147/81, respiratory rate is 22. HEENT: She is normocephalic. Her eyes are anicteric. Neck: Supple. Lungs: Clear to auscultation. Heart: Regular rate and rhythm. Abdomen: Soft, nontender. She has right inguinal adenopathy. Extremities: Her right lower extremity is diffusely swollen compared to her left. She has got eczema of the sole of both her feet, and she has diffuse erythema extending to below the knee. She has full range of motion of the ankle and knee joint. There is no drainage or fluctuance. LABS: Notable for a white count 13.8, hemoglobin 12.8, platelets 269. Sed rate 38. BUN 13 and creatinine 1. AST 63, ALT 81, alkaline phosphatase 162, CRP is 16. Blood cultures are pending. Duplex is negative for DVT. She has arthritic changes on a chest x-ray. There is no evidence of any soft tissue air or swelling. In summary, this is a 63-year-old woman with recurrent cellulitis of the right lower extremity most likely secondary to her eczema. She has a PENICILLIN ALLERGY as well. Would continue vancomycin and add Azactam at this time and follow up cultures. No signs to suggest abscess or collection that needs drainage. We will follow with you. JAMIE AKHTAR M.D. [id number]
[2018-11-16] MEDS: LOSARTAN POTASSIUM 50 MG TABLET (FP) PO SCH (13:33)
[2018-11-16] MEDS: HYDROCHLOROTHIAZIDE 25 MG TABLET (FP) PO SCH (13:33)
[2018-11-16] MEDS: ZILEUTON PO SCH ×2 (15:30→22:18)
[2018-11-16] MEDS: PATIENT'S OWN MEDICATION (NON-FORMULARY) (Umeclidinium Bromide [Incruse Ellipta] 62.5 MCG) IH SCH (15:30)
[2018-11-16] MEDS: [UNRECOGNIZED DRUG - OTHER] IH SCH ×3 (15:31→22:16)
--- NOTE | 2018-11-16 16:22 | CONSULT ---
- Consultation REQUESTING PROVIDER: CONSULT REQUEST: We have been asked to surgically evaluate this patient for ( RLE cellulitis). PCP:Flora Dove HISTORY OF PRESENT ILLNESS: 63 y/o F w/ PMHx asthma, atypical COPD, psoriasis/eczema of b/l feet, h/o right lower extremity cellulitis now admitted since the weekend for recurrent episode of RLE cellulitis. Pt reports she began having pain and swelling in her RLE on Friday and came to the ED for evaluation. Reports erythema began Friday night shortly after being admitted to [facility]. Denies fevers/chills, n/v/d at home , denies any trauma or lacerations/bug bited to her RLE. Pt reports long history of psoriasis/eczema of her b/l feet. Reports Being admitted to [facility] last June with first episode of cellulitis. Pt was treated with IV abx, with resolution. However, reports several episodes of cellulitis since which have been managed with outpt PO abx. Pt feels her eczema/psoriasis is the cause/ entry point for her infections. Reports seeing several dermatologists and receiving conflicting diagnoses (eczema vs psoriasis) and treatments. States she was on Otezla at the time of her first cellulitis episode in June and found literature which suggested cellulitis is a side effect of the medication. Pt was taken off of Otezla, however continues to have episodes of cellulitis. Currently treats outbreaks with Clobetasole and an assortment of OTC lotions/ moisturizers. Denies h/o dvt. PMHx: as above PSHx: appendectomy Home Medications Medication Instructions Recorded Aspirin [ASA -] 81 mg PO HS 06/06/18 Atorvastatin Calcium 20 mg PO DAILY 06/06/18 Beclomethasone Dipropionate [Qvar 2 inh IH BID 06/06/18 Redihaler] Levothyroxine [Synthroid -] 25 mcg PO DAILY 06/06/18 Losartan/Hydrochlorothiazide 1 each PO DAILY 06/06/18 [Losartan-Hctz 100-25 mg Tab] Umeclidinium [place] [Incruse 62.5 mcg IH BID 06/06/18 Ellipta] Umeclidinium [place] [Incruse 62.5 mcg IH DAILY 06/06/18 Ellipta] Zileuton [Zyflo Cr] 600 mg PO BID 06/06/18 Acetaminophen [Tylenol .Regular 650 mg PO Q6H PRN tablet 06/11/18 Strength -] Hydrocortisone 1% Cream [Hytone 1% 1 applic TP BID tube 06/11/18 Cream -] Mag Hydrox/Al Hydrox/Simeth 20 ml PO Q6H PRN cup 06/11/18 [Mylanta Oral Suspension -] Potassium Chloride [K-Dur -] 20 meq PO DAILY #30 tablet.er 06/11/18 Ranitidine [Zantac -] 150 mg PO HS tablet 06/11/18 predniSONE [Deltasone -] 10 mg PO DAILY #30 tablet 06/11/18 Sulfamethoxazole/Trimethoprim 1 tab PO BID #14 tablet 06/12/18 [Bactrim Ds -] Allergies Allergy/AdvReac Type Severity Reaction Status Date / Time Penicillins Allergy Verified 11/15/18 17:41 REVIEW OF SYSTEMS: CONSTITUTIONAL: Absent: fever, chills CARDIOVASCULAR: Absent: chest pain RESPIRATORY: Absent: cough, shortness of breath GASTROINTESTINAL: Absent: abdominal pain PHYSICAL EXAM: GENERAL: Awake, alert, and fully oriented, in no acute distress. HEAD: Normal with no signs of trauma. LUNGS: Unlabored on RA LOWER EXTREMITIES: LLE with multiple areas of superficial excoriation on plantar aspect of foot, most notably proximal foot. +scaling skin. RLE with multiple small cracks noted in skin with dried blood. + areas of superficial excoriations on plantar aspect of foot. +erythema from ankle to just below knee , tracking more prominent on medial aspect. + increased warmth, erythema appears to have rescinded from original markings. Vasc: 2+ dp/pt b/l Vital Signs Temperature 97.6 F 11/16/18 13:24 Pulse Rate 99 H 11/16/18 13:24 Respiratory Rate 18 11/16/18 13:24 Blood Pressure 129/72 11/16/18 13:24 O2 Sat by Pulse Oximetry (%) 97 11/16/18 09:00 Lab Results WBC 13.8 K/mm3 (4.0-10.0) H 11/15/18 20:00 RBC 4.34 M/mm3 (3.60-5.2) 11/15/18 20:00 Hgb 12.8 GM/dL (10.7-15.3) 11/15/18 20:00 Hct 36.9 % (32.4-45.2) 11/15/18 20:00 MCV 85.0 fl (80-96) 11/15/18 20:00 MCHC 34.6 g/dl (32.0-36.0) 11/15/18 20:00 RDW 14.3 % (11.6-15.6) 11/15/18 20:00 Plt Count 269 K/MM3 (134-434) D 11/15/18 20:00 Sodium 140 mmol/L (136-145) 11/15/18 20:40 Potassium 3.7 mmol/L (3.5-5.1) 11/15/18 20:40 Chloride 106 mmol/L (98-107) 11/15/18 20:40 Carbon Dioxide 25 mmol/L (21-32) 11/15/18 20:40 Anion Gap 8 MMOL/L (8-16) 11/15/18 20:40 BUN 13 mg/dL (7-18) 11/15/18 20:40 Creatinine 1.0 mg/dL (0.55-1.3) 11/15/18 20:40 Random Glucose 116 mg/dL (74-106) H 11/15/18 20:40 Calcium 8.0 mg/dL (8.5-10.1) L 11/15/18 20:40 A/P: 63 y/o F w/ PMHx asthma, atypical COPD, psoriasis/eczema of b/l feet, h/o right lower extremity cellulitis now admitted since the weekend for recurrent episode of RLE cellulitis. Afebrile, with increasing leukocytosis (13.8K) RLE cellulitis, agree that eczema/psoriasis is likely entry point -Continue IV abx per ID -LE elevation while at rest -Continue topical treatments for eczema/psoriasis -Extensive discussion with pt regarding compression therapy (compression socks) once current infection resolves as pt reports continued edema of RLE at baseline since initial insult. Information relayed to pt regarding where to purchase compression socks, strength etc. Pt agreeable above d/w attending Dr Mcfarland
[2018-11-16] MEDS: ASPIRIN 81 MG CHEWABLE TABLETS PO SCH (22:11)
[2018-11-16] MEDS: ATORVASTATIN CA 20 MG TABLET (FP) PO SCH (22:13)
[2018-11-16] MEDS: RANITIDINE HCL 150 MG TABLET (FP) PO SCH (22:26)
[2018-11-17] MEDS: AZTREONAM 1 GM in DEXTROSE 5%-WATER - 50 ML IVPB SCH ×3 (01:57→17:47)
[2018-11-17] MEDS: LEVOTHYROXINE NA 25 MCG TABLET (FP) PO SCH (06:15)
[2018-11-17 07:05] LABS: BASO % 1.2 % (0-2.0); EOS % 4.5 % (0-4.5); HEMATOCRIT 37.5 % (32.4-45.2); MCH 28.1 pg (25.7-33.7); MEAN CELL VOLUME 87.6 fl (80-96); MEAN PLT VOLUME 7.6 fl (7.5-11.1); MONO % 9.5 % (3.8-10.2); NEUT % 60.8 % (42.8-82.8); PLATELET COUNT 244 K/MM3 (134-434); RBC 4.28 M/mm3 (3.60-5.2); RDW 13.8 % (11.6-15.6); WHITE BLOOD COUNT 8.2 K/mm3 (4.0-10.0)
[2018-11-17 07:45] LABS: ALBUMIN 2.9 g/dl (3.4-5.0); ALK PHOS 165 U/L (45-117); ANION GAP 7 MMOL/L (8-16); BILIRUBIN,TOTAL 0.4 mg/dL (0.2-1); BLOOD UREA NITROGEN 14 mg/dL (7-18); CALCIUM 8.2 mg/dL (8.5-10.1); CHLORIDE 104 mmol/L (98-107); CO2 28 mmol/L (21-32); CREATININE 0.8 mg/dL (0.55-1.3); GLUCOSE,RANDOM 134 mg/dL (74-106); POTASSIUM 3.4 mmol/L (3.5-5.1); SGOT/AST 32 U/L (15-37); SGPT/ALT 64 U/L (13-61); SODIUM 140 mmol/L (136-145); TOT PROT 6.4 g/dl (6.4-8.2)
--- NOTE | 2018-11-17 09:31 | PN ---
Progress Note, Physician Chief Complaint: feels better, RLE less red - Current Medication List Current Medications: Active Medications Acetaminophen (Tylenol -) 650 mg PO Q6H PRN PRN Reason: FEVER/PAIN LEVEL 1-5 Al Hydroxide/Mg Hydroxide (Mylanta Oral Suspension -) 20 ml PO Q6H PRN PRN Reason: INDIGESTION Aspirin (Asa -) 81 mg PO HS [facility] Last Admin: 11/16/18 22:11 Dose: 81 mg Atorvastatin Calcium (Lipitor -) 20 mg PO [facility] Last Admin: 11/16/18 22:13 Dose: 20 mg Heparin Sodium (Porcine) (Heparin -) 5,000 unit SQ BID [facility] Last Admin: 11/16/18 22:12 Dose: 5,000 unit Hydrochlorothiazide (Hctz -) 25 mg PO DAILY [facility] Last Admin: 11/16/18 13:33 Dose: Not Given Hydrocortisone (Hytone 1% Cream -) 1 applic TP BID [facility] Last Admin: 11/16/18 22:19 Dose: 1 applic Aztreonam 1 gm/ Dextrose 50 mls @ 100 mls/hr IVPB Q8H-IV [facility]; Protocol Last Admin: 11/17/18 01:57 Dose: 100 mls/hr Vancomycin HCl 1,250 mg/ (Dextrose) 250 mls @ 166.667 mls/hr IVPB BID [facility]; Protocol Last Admin: 11/16/18 22:11 Dose: 166.667 mls/hr Levothyroxine Sodium (Synthroid -) 25 mcg PO DAILY@0700 [facility] Last Admin: 11/17/18 06:15 Dose: 25 mcg Losartan Potassium (Cozaar -) 50 mg PO DAILY [facility] Last Admin: 11/16/18 13:33 Dose: Not Given Non-Formulary Medication (Beclomethasone Dipropionate [Qvar Redihaler]) 2 inh IH BID [facility] Last Admin: 11/16/18 22:16 Dose: 2 inh Non-Formulary Medication (Umeclidinium [place] [Incruse Ellipta]) 62.5 mcg IH DAILY [facility] Last Admin: 11/16/18 15:30 Dose: 62.5 mcg Non-Formulary Medication (Zileuton [Zyflo Cr]) 1,200 mg PO BID [facility] Last Admin: 11/16/18 22:18 Dose: 1,200 mg Potassium Chloride (K-Dur -) 20 meq PO DAILY [facility] Last Admin: 11/16/18 09:57 Dose: Not Given Ranitidine HCl (Zantac -) 150 mg PO HS [facility] Last Admin: 11/16/18 22:26 Dose: 150 mg - Objective Vital Signs: Vital Signs Temperature 97.6 F 11/17/18 06:10 Pulse Rate 92 H 11/16/18 18:00 Respiratory Rate 18 11/17/18 06:10 Blood Pressure 130/70 11/17/18 06:10 O2 Sat by Pulse Oximetry (%) 96 11/16/18 21:00 Constitutional: Yes: No Distress, Calm Eyes: Yes: Conjunctiva Clear HENT: Yes: Atraumatic Neck: Yes: Supple Cardiovascular: Yes: Regular Rate and Rhythm Respiratory: Yes: CTA Bilaterally Gastrointestinal: Yes: Soft. No: Tenderness Genitourinary: No: CVA Tenderness - Left, CVA Tenderness - Right Musculoskeletal: No: Joint Stiffness, Joint Swelling Extremities: Yes: Erythema (RLE better). No: Cold, Cool, Cyanosis Edema: No (less RLE edema) Integumentary: Yes: Rash. No: Venous Stasis Changes Neurological: Yes: WNL, Alert, Oriented ...Motor Strength: WNL Psychiatric: Yes: WNL, Alert, Oriented. No: Agitated Labs: CBC, BMP 11/17/18 06:30 11/17/18 06:30 - ....Imaging Other: Report Reviewed Assessment/Plan The patient is a 63 year old female with a past medical history of asthma, atypical COPD, psoriasis, eczema, and h/o previous recurrent right lower extremity cellulitis with acute recurrent RLE cellulitis IV ATB per ID ID and vascular sx f/u high LFT h/o fstty liver: GI eval; liver US blood cx DVT pfx will need close derm f/u after DC from Hospital
[2018-11-17] MEDS: HYDROCORTISONE 1% TOPICAL CREAM 30 GM TUBE TP SCH ×2 (10:38→22:18)
[2018-11-17] MEDS: PATIENT'S OWN MEDICATION (NON-FORMULARY) (Umeclidinium Bromide [Incruse Ellipta] 62.5 MCG) IH SCH (10:40)
[2018-11-17] MEDS: [UNRECOGNIZED DRUG - OTHER] IH SCH ×2 (10:40→22:17)
[2018-11-17] MEDS: POTASSIUM CHLORIDE TABS 20 MEQ TABLET.ER (FP) PO SCH ×3 (10:41→13:23)
[2018-11-17] MEDS: LOSARTAN POTASSIUM 50 MG TABLET (FP) PO SCH (10:41)
[2018-11-17] MEDS: HYDROCHLOROTHIAZIDE 25 MG TABLET (FP) PO SCH (10:41)
[2018-11-17] MEDS: HEPARIN NA (PORCINE) 5,000 UNITS/ML 1ML VIAL SQ SCH ×2 (10:41→22:14)
[2018-11-17] MEDS: ZILEUTON PO SCH ×2 (10:42→22:17)
[2018-11-17] MEDS: VANCOMYCIN 1,250 MG in DEXTROSE 5%-WATER - 250 ML IVPB SCH ×2 (13:23→22:20)
--- NOTE | 2018-11-17 14:49 | PN ---
Progress Note (short form) - Note Progress Note: clinically feels improved overall no longer "feels sick" tolerating vanco/azactam Vital Signs Period Temp Pulse Resp BP Sys/[place] Pulse Ox Last 24 Hr 97.6 F-97.9 F 87-92 18-20 114-148/64-72 96-97 cor-rrr lungs clear abd soft,nt ext erythema of leg unchanged does not exceed the line no rash noted CBC, BMP 11/17/18 06:30 11/17/18 06:30 Microbiology 11/15/18 20:00 Blood - Peripheral Venous Blood Culture - Preliminary NO GROWTH OBTAINED AFTER 24 HOURS, INCUBATION TO CONTINUE FOR 4 DAYS. 11/15/18 20:00 Blood - Peripheral Venous Blood Culture - Preliminary NO GROWTH OBTAINED AFTER 24 HOURS, INCUBATION TO CONTINUE FOR 4 DAYS. a/p recurrent cellulitis of the RLE-leukocytosis resolved penicillin allergy eczema hands and feet continue vancomycin add azactam f/u cultures Problem List - Problems (1) Cellulitis Code(s): L03.90 - CELLULITIS, UNSPECIFIED Qualifiers: Site of cellulitis: extremity Site of cellulitis of extremity: lower extremity Laterality: right Qualified Code(s): L03.115 - Cellulitis of right lower limb (2) Eczema Code(s): L30.9 - DERMATITIS, UNSPECIFIED (3) Penicillin allergy Code(s): Z88.0 - ALLERGY STATUS TO PENICILLIN
--- NOTE | 2018-11-17 18:38 | CON.GI ---
Consult Consult Specialty:: Gastroenterology Referred by:: Dr Dove Reason for Consultation:: Abnormal LFTs - History of Present Illness Chief Complaint: Tender swollen RLE History of Present Illness: 63F returns for recurring vs refractory RLE cellulitis. Since her admission for this in 06/20 she has had several courses of antibiotics. These include Bactrim and Clindamycin. Her LFTs had also risen in 06/20 when I last saw her. She also had her diagnosis of psoriasis changed to eczema. Her Otezla was stopped. Her atorvastatin was restarted when her LDL barney significantly and repeat LFTs remained normal according to her until this admission. She is now been empirically started on Vancomycin and is also getting Aztreonam. Her hepatitis workup in 06/20 was unrevealing. No alcohol usage. She has a fatty liver. She had an EGD and a colonoscopy with Dr. Arlene Baez remotely and was told of diverticulosis and GERD. Her 06/20 echocardiogram revealed normal biventricular function, trace to mild TR and mild moderate AI. - History Source History Provided By: Patient Limitations to Obtaining History: No Limitations - Past Medical History Cardio/Vascular: Yes: HTN Pulmonary: Yes: Asthma, COPD Gastrointestinal: Yes: Diverticulosis, GERD, Irritable Bowel Disease Hepatobiliary: Yes: Other (fatty liver) ...: No Infectious Disease: Yes: Other (RLE cellulitis) Musculoskeletal: Yes: Chronic low back pain (disc disease and scoliosis), Osteoarthritis Endocrine: Yes: Hypothyroidism (following hemithyroidectomy for benign nodule) Dermatology: Yes: Eczema - Past Surgical History Past Surgical History: Yes: Appendectomy, Colonoscopy, Upper Endoscopy Additional Surgical History: hemithyroidectomy for benign nodule - Alcohol/Substance Use Hx Alcohol Use: No History of Substance Use: reports: None - Smoking History Smoking history: Never smoked Have you smoked in the past 12 months: No - Social History Usual Living Arrangement: With Spouse ADL: Independent 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 Place of : [facility] History of Recent Travel: No Home Medications - Allergies Allergies/Adverse Reactions: Allergies Allergy/AdvReac Type Severity Reaction Status Date / Time Penicillins Allergy Verified 11/15/18 17:41 - Home Medications Home Medications: Ambulatory Orders Aspirin [ASA -] 81 mg PO HS 06/06/18 Atorvastatin Calcium 20 mg PO DAILY 06/06/18 Beclomethasone Dipropionate [Qvar Redihaler] 2 inh IH BID 06/06/18 Levothyroxine [Synthroid -] 25 mcg PO DAILY 06/06/18 Losartan/Hydrochlorothiazide [Losartan-Hctz 100-25 mg Tab] 1 each PO DAILY 06/06 Umeclidinium [place] [Incruse Ellipta] 62.5 mcg IH BID 06/06/18 Umeclidinium [place] [Incruse Ellipta] 62.5 mcg IH DAILY 06/06/18 Zileuton [Zyflo Cr] 600 mg PO BID 06/06/18 Acetaminophen [Tylenol .Regular Strength -] 650 mg PO Q6H PRN tablet 06/11/18 Hydrocortisone 1% Cream [Hytone 1% Cream -] 1 applic TP BID tube 06/11/18 Mag Hydrox/Al Hydrox/Simeth [Mylanta Oral Suspension -] 20 ml PO Q6H PRN cup Potassium Chloride [K-Dur -] 20 meq PO DAILY #30 tablet.er 06/11/18 Ranitidine [Zantac -] 150 mg PO HS tablet 06/11/18 predniSONE [Deltasone -] 10 mg PO DAILY #30 tablet 06/11/18 Sulfamethoxazole/Trimethoprim [Bactrim Ds -] 1 tab PO BID #14 tablet 06/12/18 Family Disease History - Family Disease History Family Disease History: Heart Disease: Father ( 60 CHF, COPD), CA: Mother ( 40s of laryngeal cancer), Respiratory: Father, Other: Brother (alcoholism) Review of Systems - Review of Systems Constitutional: reports: Chills Eyes: reports: No Symptoms HENT: reports: No Symptoms Neck: reports: No Symptoms Cardiovascular: reports: No Symptoms Respiratory: reports: No Symptoms Gastrointestinal: reports: Other (bowel habits fluctuate between constipation and diarrhea) Musculoskeletal: reports: Back Pain, Extremity Pain (RLE pain, erythema and swelling) Physical Exam-GI Vital Signs: Vital Signs Temperature 97.4 F L 11/17/18 18:22 Pulse Rate 81 11/17/18 18:22 Respiratory Rate 18 11/17/18 18:22 Blood Pressure 149/82 11/17/18 18:22 O2 Sat by Pulse Oximetry (%) 97 11/17/18 09:00 CBC,CMP WBC 8.2 K/mm3 (4.0-10.0) 11/17/18 06:30 RBC 4.28 M/mm3 (3.60-5.2) 11/17/18 06:30 Hgb 12.0 GM/dL (10.7-15.3) 11/17/18 06:30 Hct 37.5 % (32.4-45.2) 11/17/18 06:30 MCV 87.6 fl (80-96) 11/17/18 06:30 MCH 28.1 pg (25.7-33.7) 11/17/18 06:30 MCHC 32.0 g/dl (32.0-36.0) 11/17/18 06:30 RDW 13.8 % (11.6-15.6) 11/17/18 06:30 Plt Count 244 K/MM3 (134-434) 11/17/18 06:30 MPV 7.6 fl (7.5-11.1) 11/17/18 06:30 Absolute Neuts (auto) 5.0 K/mm3 (1.5-8.0) 11/17/18 06:30 Neutrophils % 60.8 % (42.8-82.8) D 11/17/18 06:30 Lymphocytes % 24.0 % (8-40) D 11/17/18 06:30 Monocytes % 9.5 % (3.8-10.2) 11/17/18 06:30 Eosinophils % 4.5 % (0-4.5) D 11/17/18 06:30 Basophils % 1.2 % (0-2.0) 11/17/18 06:30 Nucleated RBC % 0 % (0-0) 11/17/18 06:30 ESR 38 mm/hr (0-30) H 11/15/18 20:00 Sodium 140 mmol/L (136-145) 11/17/18 06:30 Potassium 3.4 mmol/L (3.5-5.1) L 11/17/18 06:30 Chloride 104 mmol/L (98-107) 11/17/18 06:30 Carbon Dioxide 28 mmol/L (21-32) 11/17/18 06:30 Anion Gap 7 MMOL/L (8-16) L 11/17/18 06:30 BUN 14 mg/dL (7-18) 11/17/18 06:30 Creatinine 0.8 mg/dL (0.55-1.3) 11/17/18 06:30 Creat Clearance w eGFR > 60 (>60) 11/17/18 06:30 Random Glucose 134 mg/dL (74-106) H 11/17/18 06:30 Calcium 8.2 mg/dL (8.5-10.1) L 11/17/18 06:30 Total Bilirubin 0.4 mg/dL (0.2-1) 11/17/18 06:30 AST 32 U/L (15-37) 11/17/18 06:30 ALT 64 U/L (13-61) H 11/17/18 06:30 Alkaline Phosphatase 165 U/L (45-117) H 11/17/18 06:30 C-Reactive Protein 16.7 MG/DL (0.00-0.3) H 11/15/18 20:40 Total Protein 6.4 g/dl (6.4-8.2) 11/17/18 06:30 Albumin 2.9 g/dl (3.4-5.0) L 11/17/18 06:30 Current Medications Generic Name Dose Route Start Last Admin Trade Name Freq PRN Reason Stop Dose Admin Acetaminophen 650 mg 11/16/18 06:31 Tylenol - PO Q6H PRN FEVER/PAIN LEVEL 1-5 Al Hydroxide/Mg Hydroxide 20 ml 11/16/18 06:31 Mylanta Oral Suspension - PO Q6H PRN INDIGESTION Aspirin 81 mg 11/16/18 22:00 11/16/18 22:11 Asa - PO 81 mg HS JOSH Administration Atorvastatin Calcium 20 mg 11/16/18 22:00 11/16/18 22:13 Lipitor - PO 20 mg HS JOSH Administration Heparin Sodium (Porcine) 5,000 unit 11/16/18 10:00 11/17/18 10:41 Heparin - SQ 5,000 unit BID JOSH Administration Hydrochlorothiazide 25 mg 11/16/18 12:25 11/17/18 10:41 Hctz - PO 25 mg DAILY JOSH Administration Hydrocortisone 1 applic 11/16/18 10:00 11/17/18 10:38 Hytone 1% Cream - TP 1 applic BID JOSH Administration Aztreonam 1 gm/ Dextrose 50 mls @ 100 mls/hr 11/16/18 10:00 11/17/18 17:47 IVPB 100 mls/hr Q8H-IV JOSH Administration Protocol Vancomycin HCl 1,250 mg/ 250 mls @ 166.667 mls/hr 11/16/18 10:00 11/17/18 13: 23 Dextrose IVPB 166.667 mls/hr BID JOSH Administration Protocol Levothyroxine Sodium 25 mcg 11/16/18 10:00 11/17/18 06:15 Synthroid - PO 25 mcg DAILY@0700 JOSH Administration Losartan Potassium 50 mg 11/16/18 12:26 11/17/18 10:41 Cozaar - PO 50 mg DAILY JOSH Administration Non-Formulary Medication 2 inh 11/16/18 13:45 11/17/18 10:40 Beclomethasone Dipropionate [Qvar Redihaler] IH 2 inh BID JOS[facility] Administration Non-Formulary Medication 62.5 mcg 11/16/18 15:00 11/17/18 10:40 Umeclidinium [place] [Incruse Ellipta] IH 62.5 mcg DAILY JOSH Administration Non-Formulary Medication 1,200 mg 11/16/18 10:00 11/17/18 10:42 Zileuton [Zyflo Cr] PO 1,200 mg BID JOSH Administration Potassium Chloride 20 meq 11/16/18 10:00 11/17/18 13:23 K-Dur - PO 20 meq DAILY JOSH Administration Ranitidine HCl 150 mg 11/16/18 22:00 11/16/18 22:26 Zantac - PO 150 mg HS JOSH Administration Constitutional: Yes: Calm Eyes: Yes: Conjunctiva Clear HENT: Yes: Atraumatic Neck: Yes: Supple, Other (haled incision) Cardiovascular: Yes: Regular Rate and Rhythm Respiratory: Yes: CTA Bilaterally Gastrointestinal Inspection: Yes: Other (obese) ...Auscultate: Yes: Normoactive Bowel Sounds ...Palpate: Yes: Soft, Other (nontender) ...Rectal Exam: Yes: Deferred (done 06/06/18 when was guaiac negative) Extremities: Yes: Other (patchy shiny erythema of RLE dry cracked skin on feet and hands) Edema: RLE: 1+ Peripheral Pulses WNL: Yes Neurological: Yes: Alert, Oriented Labs: CBC, BMP 11/17/18 06:30 11/17/18 06:30 Laboratory Tests 05/20/11 06/06/18 06/07/18 10:42 08:18 06:15 Total Bilirubin GGT AST 3 L D 68 H 41 H ALT 20 72 Alkaline Phosphatase C-Reactive Protein Hep Bs Antigen Hep Bs Antibody Hep B Core Total Ab Hep B Core IgM Ab Hepatitis Be Antibody Hepatitis Be Antigen Hep C Ab Diagnostic Hepatitis C RNA 06/09/18 06/10/18 06/10/18 06:55 07:15 07:15 Total Bilirubin GGT AST 68 H ALT 123 H 113 H Alkaline Phosphatase C-Reactive Protein Hep Bs Antigen Negative Hep Bs Antibody Non reactive Hep B Core Total Ab Negative Hep B Core IgM Ab Negative Hepatitis Be Antibody Negative Hepatitis Be Antigen Negative Hep C Ab Diagnostic Hepatitis C RNA 06/10/18 06/11/18 11/15/18 07:15 07:00 20:40 Total Bilirubin 0.5 GGT 247 H AST 60 H 76 H 63 H ALT 112 H 121 H 81 H Alkaline Phosphatase 162 H C-Reactive Protein 16.7 H Hep Bs Antigen Hep Bs Antibody Hep B Core Total Ab Hep B Core IgM Ab Hepatitis Be Antibody Hepatitis Be Antigen Hep C Ab Diagnostic <0.1 Hepatitis C RNA No Result Required. 11/17/18 06:30 Total Bilirubin 0.4 GGT AST 32 ALT 64 H Alkaline Phosphatase 165 H C-Reactive Protein Hep Bs Antigen Hep Bs Antibody Hep B Core Total Ab Hep B Core IgM Ab Hepatitis Be Antibody Hepatitis Be Antigen Hep C Ab Diagnostic Hepatitis C RNA Problem List - Problems (1) Abnormal liver function tests Assessment/Plan: I suspect that the elevated transaminases reflect a reactive hepatopathy to bacteremia from the leg as the patient experienced chills just before her RLE erythema and pain erupted. They may alternatively reflect DILI reacting to one of her earlier or current antibiotics ie Bactrim, Aztreonam rather than the statin so it can be continued for now. I will order a hepatic doppler to exclude Budd Chiari Syndrome Code(s): R94.5 - ABNORMAL RESULTS OF LIVER FUNCTION STUDIES (2) Cellulitis Code(s): L03.90 - CELLULITIS, UNSPECIFIED Qualifiers: Site of cellulitis: extremity Site of cellulitis of extremity: lower extremity Laterality: right Qualified Code(s): L03.115 - Cellulitis of right lower limb (3) Eczema Code(s): L30.9 - DERMATITIS, UNSPECIFIED (4) Asthma Code(s): J45.909 - UNSPECIFIED ASTHMA, UNCOMPLICATED (5) Diverticulosis Code(s): K57.90 - DVRTCLOS OF INTEST, PART UNSP, W/O PERF OR ABSCESS W/O BLEED Qualifiers: Diverticulosis site: diverticulosis of large intestine (6) Fatty (change of) liver, not elsewhere classified Code(s): K76.0 - FATTY (CHANGE OF) LIVER, NOT ELSEWHERE CLASSIFIED (7) GERD (gastroesophageal reflux disease) Code(s): K21.9 - GASTRO-ESOPHAGEAL REFLUX DISEASE WITHOUT ESOPHAGITIS Qualifiers: Esophagitis presence: without esophagitis Qualified Code(s): K21.9 - Gastro -esophageal reflux disease without esophagitis (8) Hypothyroidism Code(s): E03.9 - HYPOTHYROIDISM, UNSPECIFIED Assessment/Plan Suspect reactive hepatopathy vs DILI Follow LFTs Continue statin Hepatic vein doppler to exclude Budd Chiari We did discuss the need to follow up in my office to arrange EGD, colonoscopy and Fibroscan after discharge
[2018-11-17] MEDS: RANITIDINE HCL 150 MG TABLET (FP) PO SCH (22:15)
[2018-11-17] MEDS: ASPIRIN 81 MG CHEWABLE TABLETS PO SCH (22:15)
[2018-11-17] MEDS: ATORVASTATIN CA 20 MG TABLET (FP) PO SCH (22:15)
[2018-11-18] MEDS: AZTREONAM 1 GM in DEXTROSE 5%-WATER - 50 ML IVPB SCH (01:28)
--- NOTE | 2018-11-18 06:27 | PN ---
Progress Note, Physician Chief Complaint: facial rash - ATB switched per ID to IV clinda, d/w pt possible risks including CDiff colitis - to take po probiotics; - Current Medication List Current Medications: Active Medications Acetaminophen (Tylenol -) 650 mg PO Q6H PRN PRN Reason: FEVER/PAIN LEVEL 1-5 Al Hydroxide/Mg Hydroxide (Mylanta Oral Suspension -) 20 ml PO Q6H PRN PRN Reason: INDIGESTION Aspirin (Asa -) 81 mg PO HS [facility] Last Admin: 11/17/18 22:15 Dose: 81 mg Atorvastatin Calcium (Lipitor -) 20 mg PO HS [facility] Last Admin: 11/17/18 22:15 Dose: 20 mg Heparin Sodium (Porcine) (Heparin -) 5,000 unit SQ BID [facility] Last Admin: 11/17/18 22:14 Dose: 5,000 unit Hydrochlorothiazide (Hctz -) 25 mg PO DAILY [facility] Last Admin: 11/17/18 10:41 Dose: 25 mg Hydrocortisone (Hytone 1% Cream -) 1 applic TP BID [facility] Last Admin: 11/17/18 22:18 Dose: Not Given Aztreonam 1 gm/ Dextrose 50 mls @ 100 mls/hr IVPB Q8H-IV [facility]; Protocol Last Admin: 11/18/18 01:28 Dose: 100 mls/hr Vancomycin HCl 1,250 mg/ (Dextrose) 250 mls @ 166.667 mls/hr IVPB BID [facility]; Protocol Last Admin: 11/17/18 22:20 Dose: 166.667 mls/hr Levothyroxine Sodium (Synthroid -) 25 mcg PO DAILY@0700 [facility] Last Admin: 11/17/18 06:15 Dose: 25 mcg Losartan Potassium (Cozaar -) 50 mg PO DAILY [facility] Last Admin: 11/17/18 10:41 Dose: 50 mg Non-Formulary Medication (Beclomethasone Dipropionate [Qvar Redihaler]) 2 inh IH BID [facility] Last Admin: 11/17/18 22:17 Dose: 2 inh Non-Formulary Medication (Umeclidinium [place] [Incruse Ellipta]) 62.5 mcg IH DAILY [facility] Last Admin: 11/17/18 10:40 Dose: 62.5 mcg Non-Formulary Medication (Zileuton [Zyflo Cr]) 1,200 mg PO BID [facility] Last Admin: 11/17/18 22:17 Dose: 1,200 mg Potassium Chloride (K-Dur -) 20 meq PO DAILY [facility] Last Admin: 11/17/18 13:23 Dose: 20 meq Ranitidine HCl (Zantac -) 150 mg PO HS [facility] Last Admin: 11/17/18 22:15 Dose: 150 mg - Objective Vital Signs: Vital Signs Temperature 97.8 F 11/18/18 06:15 Pulse Rate 81 11/18/18 06:15 Respiratory Rate 18 11/18/18 06:15 Blood Pressure 142/72 11/18/18 06:15 O2 Sat by Pulse Oximetry (%) 99 11/17/18 21:00 Constitutional: Yes: No Distress, Calm Eyes: Yes: Conjunctiva Clear HENT: Yes: Atraumatic Neck: Yes: Supple Cardiovascular: Yes: Regular Rate and Rhythm Respiratory: Yes: CTA Bilaterally Gastrointestinal: Yes: Soft. No: Tenderness Genitourinary: No: CVA Tenderness - Left, CVA Tenderness - Right Musculoskeletal: No: Joint Stiffness, Joint Swelling Extremities: Yes: Erythema (RLE much better). No: Cold, Cool, Cyanosis Edema: No Integumentary: No: Rash, Venous Stasis Changes Neurological: Yes: WNL, Alert, Oriented ...Motor Strength: WNL Psychiatric: Yes: WNL, Alert, Oriented. No: Agitated, Suicidal Ideation Labs: CBC, BMP 11/17/18 06:30 11/17/18 06:30 - ....Imaging Other: Report Reviewed Assessment/Plan The patient is a 63 year old female with a past medical history of asthma, atypical COPD, psoriasis, eczema, and h/o previous recurrent right lower extremity cellulitis with acute recurrent RLE cellulitis IV ATB per ID probiotics po ID and vascular sx f/u high LFT h/o fatty liver: GI eval; liver US blood cx DVT pfx will need close derm f/u after DC from Hospital
[2018-11-18] MEDS: LEVOTHYROXINE NA 25 MCG TABLET (FP) PO SCH (06:36)
[2018-11-18 08:16] LABS: BILIRUBIN,DIRECT 0.1 mg/dL (0.0-0.2); BILIRUBIN,TOTAL 0.6 mg/dL (0.2-1); TOT PROT 6.5 g/dl (6.4-8.2)
--- NOTE | 2018-11-18 08:33 | PN ---
Progress Note (short form) - Note Progress Note: clinically feels improved overall no longer "feels sick" facial flushing persists Vital Signs Period Temp Pulse Resp BP Sys/[place] Pulse Ox Last 24 Hr 97.4 F-98.6 F 81-90 18-20 114-149/63-82 97-99 cor-rrr lungs clear abd soft,nt ext less erythema and warmth RLE swelling unchanged CBC, BMP 11/17/18 06:30 11/17/18 06:30 Microbiology 11/15/18 20:00 Blood - Peripheral Venous Blood Culture - Preliminary NO GROWTH OBTAINED AFTER 48 HOURS, INCUBATION TO CONTINUE FOR 3 DAYS. 11/15/18 20:00 Blood - Peripheral Venous Blood Culture - Preliminary NO GROWTH OBTAINED AFTER 48 HOURS, INCUBATION TO CONTINUE FOR 3 DAYS. a/p recurrent cellulitis of the RLE-leukocytosis resolved penicillin allergy eczema hands and feet persistent facial flushing will switch to clindamycin add probiotics Problem List - Problems (1) Cellulitis Code(s): L03.90 - CELLULITIS, UNSPECIFIED Qualifiers: Site of cellulitis: extremity Site of cellulitis of extremity: lower extremity Laterality: right Qualified Code(s): L03.115 - Cellulitis of right lower limb (2) Eczema Code(s): L30.9 - DERMATITIS, UNSPECIFIED (3) Penicillin allergy Code(s): Z88.0 - ALLERGY STATUS TO PENICILLIN
[2018-11-18] MEDS: LOSARTAN POTASSIUM 50 MG TABLET (FP) PO SCH (09:57)
[2018-11-18] MEDS: LACTOBACILLUS ACIDOPHILUS 1 TABLET PO SCH ×2 (09:57→22:28)
[2018-11-18] MEDS: POTASSIUM CHLORIDE TABS 20 MEQ TABLET.ER (FP) PO SCH (09:57)
[2018-11-18] MEDS: HYDROCHLOROTHIAZIDE 25 MG TABLET (FP) PO SCH (09:57)
[2018-11-18] MEDS: HEPARIN NA (PORCINE) 5,000 UNITS/ML 1ML VIAL SQ SCH ×2 (09:57→22:29)
[2018-11-18] MEDS: CLINDAMYCIN 600MG PREMIX IVPB 600 MG/50 ML BAG IVPB SCH ×2 (09:57→17:50)
[2018-11-18] MEDS: HYDROCORTISONE 1% TOPICAL CREAM 30 GM TUBE TP SCH ×2 (09:57→22:30)
[2018-11-18] MEDS: [UNRECOGNIZED DRUG - OTHER] IH SCH ×2 (09:58→22:30)
[2018-11-18] MEDS: PATIENT'S OWN MEDICATION (NON-FORMULARY) (Umeclidinium Bromide [Incruse Ellipta] 62.5 MCG) IH SCH (09:58)
[2018-11-18] MEDS: ZILEUTON PO SCH ×2 (09:58→22:30)
[2018-11-18] MEDS: ATORVASTATIN CA 20 MG TABLET (FP) PO SCH (22:28)
[2018-11-18] MEDS: ASPIRIN 81 MG CHEWABLE TABLETS PO SCH (22:28)
[2018-11-18] MEDS: RANITIDINE HCL 150 MG TABLET (FP) PO SCH (22:28)
[2018-11-19] MEDS: CLINDAMYCIN 600MG PREMIX IVPB 600 MG/50 ML BAG IVPB SCH ×3 (01:17→17:24)
[2018-11-19] MEDS: LEVOTHYROXINE NA 25 MCG TABLET (FP) PO SCH (06:41)
[2018-11-19 07:23] LABS: BASO % 1.4 % (0-2.0); EOS % 5.3 % (0-4.5); HEMATOCRIT 35.4 % (32.4-45.2); HEMOGLOBIN 12.1 GM/dL (10.7-15.3); LYMPH % 26.9 % (8-40); MCH 29.9 pg (25.7-33.7); MCHC 34.2 g/dl (32.0-36.0); MEAN CELL VOLUME 87.4 fl (80-96); MEAN PLT VOLUME 7.7 fl (7.5-11.1); MONO % 8.7 % (3.8-10.2); NEUT % 57.7 % (42.8-82.8); PLATELET COUNT 284 K/MM3 (134-434); RBC 4.05 M/mm3 (3.60-5.2); RDW 14.1 % (11.6-15.6); WHITE BLOOD COUNT 7.4 K/mm3 (4.0-10.0)
[2018-11-19 07:41] LABS: ALK PHOS 211 U/L (45-117); ANION GAP 8 MMOL/L (8-16); BILIRUBIN,DIRECT 0.1 mg/dL (0.0-0.2); BILIRUBIN,TOTAL 0.7 mg/dL (0.2-1); BLOOD UREA NITROGEN 22 mg/dL (7-18); CALCIUM 9.2 mg/dL (8.5-10.1); CHLORIDE 104 mmol/L (98-107); CO2 28 mmol/L (21-32); CREATININE 0.8 mg/dL (0.55-1.3); GLUCOSE,RANDOM 117 mg/dL (74-106); POTASSIUM 4.2 mmol/L (3.5-5.1); SGOT/AST 43 U/L (15-37); SGPT/ALT 78 U/L (13-61); SODIUM 140 mmol/L (136-145); TOT PROT 6.5 g/dl (6.4-8.2)
--- NOTE | 2018-11-19 09:11 | PN ---
Progress Note, Physician - Current Medication List Current Medications: Active Medications Acetaminophen (Tylenol -) 650 mg PO Q6H PRN PRN Reason: FEVER/PAIN LEVEL 1-5 Al Hydroxide/Mg Hydroxide (Mylanta Oral Suspension -) 20 ml PO Q6H PRN PRN Reason: INDIGESTION Aspirin (Asa -) 81 mg PO HS [facility] Last Admin: 11/18/18 22:28 Dose: 81 mg Atorvastatin Calcium (Lipitor -) 20 mg PO HS [facility] Last Admin: 11/18/18 22:28 Dose: 20 mg Heparin Sodium (Porcine) (Heparin -) 5,000 unit SQ BID [facility] Last Admin: 11/18/18 22:29 Dose: 5,000 unit Hydrochlorothiazide (Hctz -) 25 mg PO DAILY [facility] Last Admin: 11/18/18 09:57 Dose: 25 mg Hydrocortisone (Hytone 1% Cream -) 1 applic TP BID [facility] Last Admin: 11/18/18 22:30 Dose: Not Given Clindamycin Phosphate (Cleocin 600 Mg Premix Ivpb -) 600 mg in 50 mls @ 100 mls /hr IVPB Q8H-IV [facility]; Protocol Last Admin: 11/19/18 01:17 Dose: 100 mls/hr Lactobacillus Acidophilus (Bacid -) 1 tab PO BID [facility] Last Admin: 11/18/18 22:28 Dose: 1 tab Levothyroxine Sodium (Synthroid -) 25 mcg PO DAILY@0700 [facility] Last Admin: 11/19/18 06:41 Dose: 25 mcg Losartan Potassium (Cozaar -) 50 mg PO DAILY [facility] Last Admin: 11/18/18 09:57 Dose: 50 mg Non-Formulary Medication (Beclomethasone Dipropionate [Qvar Redihaler]) 2 inh IH BID [facility] Last Admin: 11/18/18 22:30 Dose: 2 inh Non-Formulary Medication (Umeclidinium [place] [Incruse Ellipta]) 62.5 mcg IH DAILY [facility] Last Admin: 11/18/18 09:58 Dose: 62.5 mcg Non-Formulary Medication (Zileuton [Zyflo Cr]) 1,200 mg PO BID [facility] Last Admin: 11/18/18 22:30 Dose: 1,200 mg Potassium Chloride (K-Dur -) 20 meq PO DAILY [facility] Last Admin: 11/18/18 09:57 Dose: 20 meq Ranitidine HCl (Zantac -) 150 mg PO HS [facility] Last Admin: 11/18/18 22:28 Dose: 150 mg - Objective Vital Signs: Vital Signs Temperature 97.9 F 11/19/18 05:56 Pulse Rate 79 11/19/18 05:56 Respiratory Rate 20 11/19/18 05:56 Blood Pressure 141/73 11/19/18 05:56 O2 Sat by Pulse Oximetry (%) 99 11/18/18 21:00 Labs: CBC, BMP 11/19/18 06:00 11/19/18 06:00
[2018-11-19] MEDS: HEPARIN NA (PORCINE) 5,000 UNITS/ML 1ML VIAL SQ SCH (10:10)
[2018-11-19] MEDS: LACTOBACILLUS ACIDOPHILUS 1 TABLET PO SCH (10:10)
[2018-11-19] MEDS: LOSARTAN POTASSIUM 50 MG TABLET (FP) PO SCH (10:10)
[2018-11-19] MEDS: HYDROCORTISONE 1% TOPICAL CREAM 30 GM TUBE TP SCH (10:10)
[2018-11-19] MEDS: HYDROCHLOROTHIAZIDE 25 MG TABLET (FP) PO SCH (10:10)
[2018-11-19] MEDS: POTASSIUM CHLORIDE TABS 20 MEQ TABLET.ER (FP) PO SCH (10:10)
[2018-11-19] MEDS: PATIENT'S OWN MEDICATION (NON-FORMULARY) (Umeclidinium Bromide [Incruse Ellipta] 62.5 MCG) IH SCH (10:11)
[2018-11-19] MEDS: ZILEUTON PO SCH (10:11)
[2018-11-19] MEDS: [UNRECOGNIZED DRUG - OTHER] IH SCH (10:11)
[2018-11-19 13:26] VITALS: PULSE 84
--- NOTE | 2018-11-19 15:32 | PN ---
Progress Note, Physician History of Present Illness: No c/o leg pain Reports significant improvement in L LE erythema No fever/ chills WBC WNL BC (-) - Current Medication List Current Medications: Active Medications Acetaminophen (Tylenol -) 650 mg PO Q6H PRN PRN Reason: FEVER/PAIN LEVEL 1-5 Al Hydroxide/Mg Hydroxide (Mylanta Oral Suspension -) 20 ml PO Q6H PRN PRN Reason: INDIGESTION Aspirin (Asa -) 81 mg PO HS [facility] Last Admin: 11/18/18 22:28 Dose: 81 mg Atorvastatin Calcium (Lipitor -) 20 mg PO HS [facility] Last Admin: 11/18/18 22:28 Dose: 20 mg Heparin Sodium (Porcine) (Heparin -) 5,000 unit SQ BID [facility] Last Admin: 11/19/18 10:10 Dose: 5,000 unit Hydrochlorothiazide (Hctz -) 25 mg PO DAILY [facility] Last Admin: 11/19/18 10:10 Dose: 25 mg Hydrocortisone (Hytone 1% Cream -) 1 applic TP BID [facility] Last Admin: 11/19/18 10:10 Dose: Not Given Clindamycin Phosphate (Cleocin 600 Mg Premix Ivpb -) 600 mg in 50 mls @ 100 mls /hr IVPB Q8H-IV [facility]; Protocol Last Admin: 11/19/18 10:10 Dose: 100 mls/hr Lactobacillus Acidophilus (Bacid -) 1 tab PO BID [facility] Last Admin: 11/19/18 10:10 Dose: 1 tab Levothyroxine Sodium (Synthroid -) 25 mcg PO DAILY@0700 [facility] Last Admin: 11/19/18 06:41 Dose: 25 mcg Losartan Potassium (Cozaar -) 50 mg PO DAILY [facility] Last Admin: 11/19/18 10:10 Dose: 50 mg Non-Formulary Medication (Beclomethasone Dipropionate [Qvar Redihaler]) 2 inh IH BID [facility] Last Admin: 11/19/18 10:11 Dose: 2 inh Non-Formulary Medication (Umeclidinium [place] [Incruse Ellipta]) 62.5 mcg IH DAILY [facility] Last Admin: 11/19/18 10:11 Dose: 62.5 mcg Non-Formulary Medication (Zileuton [Zyflo Cr]) 1,200 mg PO BID [facility] Last Admin: 11/19/18 10:11 Dose: 1,200 mg Potassium Chloride (K-Dur -) 20 meq PO DAILY [facility] Last Admin: 11/19/18 10:10 Dose: 20 meq Ranitidine HCl (Zantac -) 150 mg PO HS [facility] Last Admin: 11/18/18 22:28 Dose: 150 mg - Objective Vital Signs: Vital Signs Temperature 97.9 F 11/19/18 13:24 Pulse Rate 84 11/19/18 13:24 Respiratory Rate 20 11/19/18 13:24 Blood Pressure 130/63 11/19/18 13:24 O2 Sat by Pulse Oximetry (%) 99 11/19/18 09:00 Constitutional: Yes: No Distress, Obese Eyes: Yes: Conjunctiva Clear Cardiovascular: Yes: Regular Rate and Rhythm, S1, S2 Respiratory: Yes: CTA Bilaterally Gastrointestinal: Yes: Normal Bowel Sounds, Soft, Abdomen, Obese. No: Tenderness Extremities: Yes: Other (R LE erythma receding from traced out margins) Labs: CBC, BMP 11/19/18 06:00 11/19/18 06:00 Assessment/Plan R LE cellulitis Antibiotic allergies Substitute clindamycin 300mg po tid x7d with probiotic
--- NOTE | 2018-11-19 16:26 | DS ---
Physical Examination Vital Signs: Vital Signs Temperature 97.9 F 11/19/18 13:24 Pulse Rate 84 11/19/18 13:24 Respiratory Rate 20 11/19/18 13:24 Blood Pressure 130/63 11/19/18 13:24 O2 Sat by Pulse Oximetry (%) 99 11/19/18 09:00 Findings/Remarks: feels better wants to go home, will dw ID po ATB; f/u as advised Constitutional: Yes: No Distress, Calm Eyes: Yes: Conjunctiva Clear HENT: Yes: Atraumatic Neck: Yes: Supple Cardiovascular: Yes: Regular Rate and Rhythm Respiratory: Yes: CTA Bilaterally Gastrointestinal: Yes: Soft. No: Tenderness Renal/: No: CVA Tenderness - Left, CVA Tenderness - Right Musculoskeletal: No: Joint Stiffness, Joint Swelling Extremities: Yes: Erythema (R rash and edema better). No: Cold, Cool Integumentary: No: Venous Stasis Changes Neurological: Yes: WNL, Alert, Oriented ...Motor Strength: WNL Psychiatric: Yes: WNL, Alert, Oriented. No: Agitated, Suicidal Ideation Labs: CBC, BMP 11/19/18 06:00 11/19/18 06:00 Discharge Summary Reason For Visit: cellulitis Current Active Problems Cellulitis (Acute) Eczema (Acute) Elevated C-reactive protein (CRP) (Acute) Elevated erythrocyte sedimentation rate (Acute) Penicillin allergy (Acute) Procedures: Principal: admitted with RLE cellulitis Other Procedures: IV ATB per ID; leg US no DVT;. high LFTs seen by GI; fatty liver ?US; LF diet and weight loss d/w pt; Hospital Course: improved with above; f/u as advised. Condition: Stable - Instructions Diet, Activity, Other Instructions: f/u PCP and dermatology in 1-2 weeks; po antibiotics x 1 week as ordered; daily probiotics and yogurt; good po hydration; GI f/u EGD colonoscopy and liver ds; RTER if worse or recurrent c/o; Referrals: Flora Dove [Primary Care Provider] - Viviana Cha MD [Staff Physician] - Irma Cheng MD [Staff Physician] - Disposition: HOME - Home Medications Comprehensive Discharge Medication List: Ambulatory Orders Aspirin [ASA -] 81 mg PO HS 06/06/18 Atorvastatin Calcium 20 mg PO DAILY 06/06/18 Beclomethasone Dipropionate [Qvar Redihaler] 2 inh IH BID 06/06/18 Levothyroxine [Synthroid -] 25 mcg PO DAILY 06/06/18 Losartan/Hydrochlorothiazide [Losartan-Hctz 100-25 mg Tab] 1 each PO DAILY 06/06 Umeclidinium [place] [Incruse Ellipta] 62.5 mcg IH BID 06/06/18 Umeclidinium [place] [Incruse Ellipta] 62.5 mcg IH DAILY 06/06/18 Zileuton [Zyflo Cr] 600 mg PO BID 06/06/18 Acetaminophen [Tylenol .Regular Strength -] 650 mg PO Q6H PRN tablet 06/11/18 Hydrocortisone 1% Cream [Hytone 1% Cream -] 1 applic TP BID tube 06/11/18 Mag Hydrox/Al Hydrox/Simeth [Mylanta Oral Suspension -] 20 ml PO Q6H PRN cup Potassium Chloride [K-Dur -] 20 meq PO DAILY #30 tablet.er 06/11/18 Ranitidine [Zantac -] 150 mg PO HS tablet 06/11/18 predniSONE [Deltasone -] 10 mg PO DAILY #30 tablet 06/11/18 Sulfamethoxazole/Trimethoprim [Bactrim Ds -] 1 tab PO BID #14 tablet 06/12/18
[2018-11-19 17:58] VITALS: BP 136/77; TEMP 97.7
== END 2018-11-19 18:16 | disposition home or self-care (01) | DRG 603 ==
LOC: JER 17:28 → JERBED 22:38 → J7W 11-16 04:49
PROVIDERS: ADMIT Internal Medicine; ATTEND Internal Medicine
DX: L03.115 Cellulitis of right lower limb (principal); Z68.41 Body mass index [BMI] 40.0-44.9, adult; Z88.0 Allergy status to penicillin; K76.0 Fatty (change of) liver, not elsewhere classified; E66.9 Obesity, unspecified; D72.829 Elevated white blood cell count, unspecified; L30.9 Dermatitis, unspecified; K21.9 Gastro-esophageal reflux disease without esophagitis; R94.5 Abnormal results of liver function studies; J45.909 Unspecified asthma, uncomplicated; K57.90 Diverticulosis of intestine, part unspecified, without perforation or abscess without bleeding; E03.9 Hypothyroidism, unspecified; L40.9 Psoriasis, unspecified; J44.9 Chronic obstructive pulmonary disease, unspecified
CPT/HCPCS: 36415; 73590-TC-RT-FY; 76705-TC; 80053; 80076; 82105; 82977; 85025; 85651; 86140; 87040; 93005; 93010; 93971-TC; 93975; 99283-25; G0480; J1644

== ENCOUNTER 2021-04-08 09:17 | Emergency (ER) | payer OTHER ==
[2021-04-08 09:25] VITALS: BMI 43.6
[2021-04-08 11:22] LABS: BASO % 0.3 % (0-2.0); EOS % 10.2 % (0-4.5); HEMATOCRIT 36.1 % (32.4-45.2); HEMOGLOBIN 12.3 GM/dL (10.7-15.3); LYMPH % 18.6 % (8-40); MCH 30.6 pg (25.7-33.7); MEAN CELL VOLUME 90.1 fl (80-96); MEAN PLT VOLUME 8.1 fl (7.5-11.1); MONO % 5.8 % (3.8-10.2); NEUT % 65.1 % (42.8-82.8); PLATELET COUNT 259 K/MM3 (134-434); RBC 4.01 M/mm3 (3.60-5.2); RDW 14.3 % (11.6-15.6)
[2021-04-08 11:28] LABS: INR 0.98 (0.83-1.09); PROTHROMBIN TIME (PATIENT) 11.9 SEC (9.7-13.0)
[2021-04-08 11:31] LABS: ACTIVATED PTT 33.3 SECONDS (25.2-36.5)
[2021-04-08 12:03] LABS: CHLORIDE 108 mmol/L (98-107); SODIUM 139 mmol/L (136-145)
[2021-04-08 12:06] LABS: ALBUMIN 3.4 g/dl (3.4-5.0); ANION GAP 7 MMOL/L (8-16); CALCIUM 8.7 mg/dL (8.5-10.1); CO2 24 mmol/L (21-32)
[2021-04-08 12:07] LABS: BLOOD UREA NITROGEN 24.1 mg/dL (7-18); GLUCOSE,RANDOM 118 mg/dL (74-106); MAGNESIUM 2.3 mg/dL (1.8-2.4)
[2021-04-08 12:09] LABS: SGOT/AST 47 U/L (15-37); SGPT/ALT 25 U/L (13-61)
[2021-04-08 12:10] LABS: BILIRUBIN,TOTAL 0.5 mg/dL (0.2-1); CREATININE 0.8 mg/dL (0.55-1.3); TOT PROT 6.8 g/dl (6.4-8.2)
[2021-04-08 12:11] LABS: ALK PHOS 105 U/L (45-117)
[2021-04-08 13:45] VITALS: BP 134/80; PULSE 82; TEMP 98.1
== END 2021-04-08 13:42 | disposition home or self-care (01) ==
LOC: JER 09:17
DX: R06.02 Shortness of breath (principal)
CPT/HCPCS: 36415; 71046-TC-FY; 80053; 82550; 82553; 83735; 83880; 84484; 85025; 85610; 85730; 93005; 93010; 99284-25; C9803; U0003; U0005

== ENCOUNTER → 2023-03-04 | Day surgery (SDC) | payer OTHER ==
[2023-03-04 09:33] LABS: BASO % 0.9 % (0-2.0); EOS % 5.1 % (0-4.5); HEMOGLOBIN 12.1 GM/dL (10.7-15.3); LYMPH % 17.3 % (8-40); MCH 28.6 pg (25.7-33.7); MCHC 33.7 g/dl (32.0-36.0); MEAN PLT VOLUME 7.2 fl (7.5-11.1); MONO % 5.5 % (3.8-10.2); NEUT % 71.2 % (42.8-82.8); PLATELET COUNT 300 10^3/uL (134-434); RBC 4.23 M/mm3 (3.60-5.2); RDW 14.4 % (11.6-15.6); WHITE BLOOD COUNT 10.3 K/mm3 (4.0-10.0)
[2023-03-04 09:45] LABS: INR 1.01 (0.83-1.09); PROTHROMBIN TIME (PATIENT) 11.7 SEC (9.7-13.0)
== END | disposition home or self-care (01) ==
LOC: JRADIR 08:51
PROVIDERS: ATTEND Internal Medicine
PROC: 07DH3ZX Extraction of Right Inguinal Lymphatic, Percutaneous Approach, Diagnostic (ICD-10-PCS; principal; 2023-03-04)
DX: R59.0 Localized enlarged lymph nodes (principal)
CPT/HCPCS: 36415; 38505; 76942-TC; 85025; 85610; 88305-TC; 88342-TC